=== PATIENT | female | born 1940 | race Caucasian/White ===

== ENCOUNTER 2018-05-14 10:47 | Inpatient (IN) | payer MEDICARE, OTHER ==
[2018-05-14] MEDS ORDERED: Ondansetron 4 MG/2 ML SDV IV ONE (11:00)
[2018-05-14] MEDS ORDERED: Morphine 2 MG/ML Syringe IVPUSH ONE (11:00)
[2018-05-14] MEDS: Sodium Chloride 0.9% 10 ML Syringe FLUSH PRN (11:03)
[2018-05-14] MEDS ORDERED: Morphine 4 MG/ML Syringe IVPUSH ONE (12:37)
--- NOTE | 2018-05-14 13:45 | PCM.HP ---
H&P History of Present Illness - General Date of Service: 05/14/18 Admit Problem/Dx: admitted for pain control had fall at home and CT showede Left sacral Alar fracture and B/L Pubic rami fracture Source of Information: Patient, Old Records History Limitations: Reports: No Limitations - History of Present Illness Initial Comments - Free Text/Narative: Ms Venkatesh Kenyon is a 77-year-old female with medical history significant for hypertension, hyperlipidemia, chronic history of alcohol use, chronic history of tobacco use, with history of Left Hip Fracture s/p Closed reduction with intramedullary nail fixation, intertrochanteric fracture, left, on May 09, 2014, she presented to ER today after she had fall yesterday ( 05/13/18) at her brother's house while she was going from garage to house and fell on stairs of the garage, after coming to ER today () had CT of pelvis without contrast on 05/14/18 and showed left sacral Alar Fracture and B/L pubic rami fracture, ER doctor talk to education counselor orthopedic ( Dr. Olivares) at [facility] and recommend if pain is controlled the pt can go home and continue weight bearing and wanted to see her in a week in clinic. ER attending called me with these Information and she will be admitted for pain control and if the pain is well controlled then will be able to go home. she is admitted as observation for pain control. she also had CXR that showed increasing airspace consolidation in the left Lung is likely pneumonia Onset of Symptoms: Reports: Today, Gradual Quality: Reports: Sharp Severity: Moderate Lower Back Pain Score (Numeric/FACES): 9 Left Upper Thigh Pain Score (Numeric/FACES): 9 - Related Data Allergies/Adverse Reactions: Allergies Allergy/AdvReac Type Severity Reaction Status Date / Time hydrochlorothiazide Allergy Dizziness Verified 05/15/14 15:59 Home Medications: Home Meds Aspirin [Estee Chewable Aspirin] 81 mg PO DAILY 05/15/14 [History] Calcium Carbonate/Vitamin D3 [Calcium 500 + Vit D 400] 1 each PO DAILY 05/15/14 [History] Cholecalciferol (Vitamin D3) [Vitamin D3] 1,000 units PO DAILY 05/15/14 [History ] amLODIPine [Norvasc] 5 mg PO DAILY 05/15/14 [History] atorvaSTATin [Lipitor] 20 mg PO DAILY 05/15/14 [History] Lisinopril 20 mg PO DAILY 05/14/18 [History] Past Medical History HEENT History: Reports: Impaired Vision Other HEENT History: wears glasses Cardiovascular History: Reports: High Cholesterol, Hypertension Respiratory History: Reports: COPD Endocrine/Metabolic History: Reports: Diabetes, Type II Other Endocrine/Metabolic History: told her she didn't have to worry about her Type 2 Diabetes till she was maybe 88 Social & Family History - Tobacco Use Smoking Status *Q: Current Every Day Smoker Years of Tobacco use: 60 Packs/Tins Daily: 0.5 H&P Review of Systems - Review of Systems: Review Of Systems: See Below General: Reports: Other (severe pain on her hip and back). Denies: Fever, Chills, Weakness, Weight Gain HEENT: Denies: Headaches, Sinus Congestion, Sore Throat, Visual Changes Pulmonary: Denies: Shortness of Breath, Wheezing, Cough, Sputum Cardiovascular: Denies: Chest Pain, Dyspnea on Exertion, Edema, Claudication Gastrointestinal: Denies: Abdominal Pain, Diarrhea, Nausea, Vomiting Genitourinary: Denies: Dysuria, Frequency, Burning, Urgency Musculoskeletal: Reports: Other (B/L hip pain and back pain). Denies: Neck Pain Skin: Denies: Cyanosis, Jaundice, Bruising, Pruritis, Rash, Erythema Psychiatric: Denies: Confusion, Anxiety Neurological: Denies: Confusion, Numbness, Tingling, Tremors Exam - Exam Exam: See Below - Vital Signs Vital Signs: Last Vital Signs Temp 37.6 C 05/14/18 13:20 Pulse 91 05/14/18 13:20 Resp 18 05/14/18 13:20 BP 105/93 H 05/14/18 13:20 Pulse Ox 84 L 05/14/18 13:20 Weight: 38.555 kg - Exam Quality Assessment: DVT Prophylaxis. No: Supplemental Oxygen, Urinary Catheter General: Alert, Oriented, Cooperative HEENT: Conjunctiva Clear, EOMI, Hearing Intact, Mucosa Moist & [place] Neck: Supple. No: Lymphadenopathy, Thyromegaly Lungs: Clear to Auscultation, Normal Respiratory Effort. No: Wheezing Cardiovascular: Regular Rate, Regular Rhythm, Systolic Murmur GI/Abdominal Exam: Normal Bowel Sounds, Soft, Non-Tender, No Distention. No: Guarding, Rigid, Rebound (Female) Exam: Deferred Rectal (Female) Exam: Deferred Back Exam: Normal Inspection Extremities: Normal Inspection, No Pedal Edema Skin: Warm, Dry, Intact Neurological: Cranial Nerves Intact, Reflexes Equal Bilateral Neuro Extensive - Mental Status: Alert, Oriented x3, Normal Mood/Affect, Normal Cognition, Memory Intact Psychiatric: Alert, Normal Affect, Normal Mood - Problem List (1) Hip pain, bilateral SNOMED Code(s): 98258496 ICD Code: M25.551 - PAIN IN RIGHT HIP; M25.552 - PAIN IN LEFT HIP Status: Acute Current Visit: Yes (2) Fracture of femur SNOMED Code(s): 29424788 ICD Code: S72.90XA - UNSP FRACTURE OF UNSP FEMUR, INIT ENCNTR FOR CLOSED FRACTURE Status: Acute Current Visit: No Problem List Initiated/Reviewed/Updated: Yes Orders Last 24hrs: Active Orders 24 hr Category Date Time Status Peripheral IV Care [RC] . DIRECTED Care 05/14/18 10:58 Active Sodium Chloride 0.9% [Saline Flush] Med 05/14/18 10:58 Active 10 ml FLUSH ASDIRECTED PRN Peripheral IV Insertion Adult [OM.PC] Routine Oth 05/14/18 10:58 Ordered Medication Orders Sodium Chloride (Saline Flush) 10 ml FLUSH ASDIRECTED PRN PRN Reason: Keep Vein Open Last Admin: 05/14/18 11:03 Dose: 10 ml Assessment/Plan Comment:: This is a 77 y/O F admitted after she had fall at home with CT finding of left sacral alar fracture and B/L pubic rami fracture Impression and Plan: 1. left sacral alar fracture and B/L pubic rami fracture -Pt's images were reviewed by Dr. Olivares ( orthopedic) at [facility] and recommended pain control -will start her on percocet 5/325 mg q6 hrs for pain -continue Telenol 650 mg q8 hrs prn pain -Will continue Morphine 2 mg IV q8 hrs PRN for breakthrough pain -Will consult PT/OT for evaluation and treat -Ortho plan to see her in a week -Will also start her on calcitonin nasal spray as per Ortho recommendation 2. Hypertension: BP acceptable and will continue Amlodipine at 5 mg daily 3. DVT prophylaxis: Continue heparin Code status: Full Code
[2018-05-14] MEDS ORDERED: Bisacodyl 10 MG Supp RECTAL PRN (14:30)
[2018-05-14] MEDS ORDERED: Acetaminophen 325 MG Tab PO PRN (14:30)
[2018-05-14] MEDS: Heparin Sodium 5,000 Units/ML Vial SUBCUT SCH ×3 (15:11→22:10)
[2018-05-14] MEDS: Acetaminophen/oxyCODONE 325-5 MG Tab PO PRN ×3 (15:11→23:15)
--- NOTE | 2018-05-14 19:25 | ER ---
SUBJECTIVE: The patient is a 77-year-old female who has osteoporosis, previous left hip fractures, and had to have a jorge down her femur who comes in today because she fell on some ice and ended up hurting her low back and her pelvis and left hip area. She denies hitting her head. Has no neck pain, chest pain, mid or upper back pain. She actually fell last night, and she was assisted to bed. This a.m., she was even more tender and had a hard time getting up and then was brought into the emergency room. No further falls since last night. No abdominal pain. No nausea or vomiting. No bowel or bladder changes or bleeding. PAST MEDICAL HISTORY: Osteoporosis, osteopenia, and osteoarthritis, hypertension, hyperlipidemia, COPD, chronic tobacco abuse, diabetes. CURRENT MEDICATIONS: 1. Aspirin 81 mg p.o. daily. 2. Calcium 500 plus vitamin D 400 p.o. daily. 3. Amlodipine 5 mg p.o. daily. 4. Atorvastatin 20 mg p.o. daily. 5. Lisinopril 20 mg p.o. daily. ALLERGIES: She is allergic to hydrochlorothiazide, causes dizziness. SOCIAL HISTORY: She has been smoking since a young age for about 60 years. Occasional alcohol. No other substance abuse. REVIEW OF SYSTEMS: No headache, syncope, near syncope, vision changes, head pain. No head trauma. No seizures, no neck pain. No middle or upper back pain but does have low back pain and left hip pain. No abdominal pain. No nausea or vomiting. No bowel or bladder changes or bleeding. Please see HPI. OBJECTIVE: Vitals: Stable. She is afebrile. General: Pleasant, she comes in by ambulance. HEENT: Normocephalic and atraumatic. Neurologic: A and O x3. GCS of 15. Neck: Nontender. Chest: Nontender, moving air well. Cardiovascular: RRR. Abdominal Exam: Soft and benign. Back: She does have some low back tenderness. No signs of trauma. No deformity or crepitus or point tenderness. Her left hip is tender, it is nonspecific however. There is no crepitus or deformity. There is no internal rotation or external rotation. DIAGNOSTIC STUDIES: A CAT scan of her low back and pelvis was performed. She did have a bilateral pubic rami fracture that was nondisplaced and also had fracture of the left ala of the sacrum. EMERGENCY ROOM COURSE: I did discuss the patient with Dr. Olivares, the orthopedist at [place] at [facility]. He was forwarded the CAT scans, he did review them. He said the fractures are non-surgical and that if the patient was able, she could go home, weight bear as able. She will need Miacalcin (calcitonin) and pain medications. She is also to take vitamin C and vitamin D as well as some calcium which she is already on. However if the patient was unable to tolerate the pain, she may have to be admitted for observation. The patient was given morphine and Zofran. Her pain was quite intense, she had nobody to pick her up. She felt she was unable to live by herself at home and get around. She was not able to sit up or move around well and posed great threat of falling again to herself. Therefore we did call the doctor on-call here at [facility], and he agreed to accept her to his service. She will be admitted. ASSESSMENT: 1. Fall. 2. Bilateral pubic rami fracture secondary to fall. 3. Left-sided alar fracture of sacrum, all nondisplaced. 4. Osteoporosis. 5. Intractable pain and inability to take care of herself and go home. PLAN: The patient will be admitted to the hospitalist. [facility] /[id number]
[2018-05-14] MEDS: Morphine 2 MG/ML Syringe IVPUSH PRN (20:41)
[2018-05-15] MEDS: Heparin Sodium 5,000 Units/ML Vial SUBCUT SCH ×4 (05:31→21:37)
[2018-05-15] MEDS: Acetaminophen/oxyCODONE 325-5 MG Tab PO PRN ×3 (05:31→20:06)
[2018-05-15] MEDS ORDERED: Ondansetron 4 MG/2 ML SDV IV PRN (05:41)
[2018-05-15 07:05] LABS: ANION GAP 15.4; CHLORIDE,CL 97 mmol/L (101-111); SODIUM,NA 132 mmol/L (135-145)
[2018-05-15] MEDS: Cholecalciferol (Vitamin D3) 400 Unit Tab PO SCH (09:15)
[2018-05-15] MEDS: Aspirin 81 MG Tab.Chew PO SCH (09:16)
[2018-05-15] MEDS: atorvaSTATin 20 MG Tab PO SCH (09:16)
[2018-05-15] MEDS: Calcium Carbonate/Vitamin D3 1250 MG-200 Unit Tab PO SCH (09:16)
[2018-05-15] MEDS: amLODIPine 5 MG Tab PO SCH (09:16)
[2018-05-15] MEDS: Lisinopril 20 MG Tab PO SCH (09:17)
[2018-05-15] MEDS: Calcitonin (Salmon) Nasal Spray 3.7 ML Bottle NAS SCH (09:25)
[2018-05-15] MEDS: Morphine 2 MG/ML Syringe IVPUSH PRN ×3 (10:13→21:17)
[2018-05-15] MEDS: Sodium Chloride 0.9% 10 ML Syringe FLUSH PRN ×2 (10:14→14:32)
[2018-05-15] MEDS: Ondansetron 4 MG/2 ML SDV IV PRN (14:32)
--- NOTE | 2018-05-15 14:48 | PCM.PN ---
- General Info Date of Service: 05/15/18 Admission Dx/Problem (Free Text): admitted for pain control had fall at home and CT showede Left sacral Alar fracture and B/L Pubic rami fracture Subjective Update: Pelvic pain is much better controlled today No new complaints No cough, no SOB, no CP. - Review of Systems General: Reports: No Symptoms HEENT: Reports: No Symptoms Pulmonary: Reports: No Symptoms Cardiovascular: Reports: No Symptoms Gastrointestinal: Reports: No Symptoms Genitourinary: Reports: No Symptoms Musculoskeletal: Reports: Other (pelvic pain) Neurological: Reports: No Symptoms - Patient Data Vitals - Most Recent: Last Vital Signs Temp 37.4 C 05/15/18 12:00 Pulse 83 05/15/18 12:00 Resp 22 H 05/15/18 12:00 BP 80/47 L 05/15/18 12:00 Pulse Ox 90 L 05/15/18 12:29 Weight - Most Recent: 38.555 kg I&O - Last 24 Hours: Intake & Output 05/14/18 05/15/18 05/15/18 22:59 06:59 14:59 Intake Total 240 Output Total 500 Balance 240 -500 Lab Results Last 24 Hours: Laboratory Results - last 24 hr 05/15/18 05/15/18 Range/Units 06:21 06:21 WBC 18.0 H (5.0-10.0) 10^3/uL RBC 3.82 L (4.2-5.4) 10^6/uL Hgb 11.8 L (12.0-16.0) g/dL Hct 35.3 L (37.0-47.0) % MCV 92.4 (80-100) fL MCH 30.9 (27.0-34.0) pg MCHC 33.4 (33.0-35.0) g/dL Plt Count 176 D (150-450) 10^3/uL Neut % (Auto) 89.9 H (42.2-75.2) % Lymph % (Auto) 3.5 L (20.5-50.1) % [place] % (Auto) 5.9 (2-8) % Eos % (Auto) 0.5 L (1.0-3.0) % Baso % (Auto) 0.2 (0.0-1.0) % Sodium 132 L (135-145) mmol/L Potassium 4.4 (3.6-5.0) mmol/L Chloride 97 L (101-111) mmol/L Carbon Dioxide 24.0 (21.0-31.0) mmol/L Anion Gap 15.4 BUN 32 H (7-18) mg/dL Creatinine 0.9 (0.6-1.3) mg/dL Est Cr Clr Drug Dosing 30.85 mL/min Estimated GFR (MDRD) > 60 Glucose 143 H (74-105) mg/dL Calcium 8.4 (8.4-10.2) mg/dl Med Orders - Current: Current Medications Acetaminophen (Tylenol) 650 mg PO Q4H PRN PRN Reason: Pain (mild 1-3 )/fever Amlodipine Besylate (Norvasc) 5 mg PO DAILY [facility] Last Admin: 05/15/18 09:16 Dose: Not Given Aspirin (Aspirin) 81 mg PO DAILY [facility] Last Admin: 05/15/18 09:16 Dose: 81 mg Atorvastatin Calcium (Lipitor) 20 mg PO DAILY [facility] Last Admin: 05/15/18 09:16 Dose: 20 mg Bisacodyl (Dulcolax) 10 mg RECTAL DAILY PRN PRN Reason: Constipation Calcitonin [place] (Miacalcin Nasal [place]) 0 ml GLORIA DAILY [facility] Last Admin: 05/15/18 09:25 Dose: 1 spr Calcium Carbonate (Calcium Carbonate/Vitamin D 1250 Mg-200 Unit) 1 tab PO DAILY [facility] Last Admin: 05/15/18 09:16 Dose: 1 tab Cholecalciferol (Vitamin D3) 1,000 units PO DAILY [facility] Last Admin: 05/15/18 09:15 Dose: 1,000 units Docusate Sodium (Colace) 100 mg PO DAILY PRN PRN Reason: Constipation Heparin Sodium (Porcine) (Heparin Sodium) 5,000 units SUBCUT Q8H [facility] Last Admin: 05/15/18 14:31 Dose: 5,000 units Lisinopril (Prinivil) 20 mg PO DAILY [facility] Last Admin: 05/15/18 09:17 Dose: Not Given Morphine Sulfate (Morphine) 2 mg IVPUSH Q4H PRN PRN Reason: Pain (severe 7-10) Last Admin: 05/15/18 14:31 Dose: 2 mg Ondansetron HCl (Zofran) 4 mg IV Q6H PRN PRN Reason: Nausea/Vomiting Last Admin: 05/15/18 14:32 Dose: 4 mg Oxycodone/Acetaminophen (Percocet 325-5 Mg) 1 tab PO Q4H PRN PRN Reason: Pain (moderate 4-6) Last Admin: 05/15/18 09:16 Dose: 1 tab Sodium Chloride (Saline Flush) 10 ml FLUSH ASDIRECTED PRN PRN Reason: Keep Vein Open Last Admin: 05/15/18 14:32 Dose: 10 ml Discontinued Medications Morphine Sulfate (Morphine) 2 mg IVPUSH ONETIME ONE Stop: 05/14/18 11:01 Last Admin: 05/14/18 11:07 Dose: 2 mg Morphine Sulfate (Morphine) 4 mg IVPUSH ONETIME ONE Stop: 05/14/18 12:38 Last Admin: 05/14/18 12:44 Dose: 4 mg Morphine Sulfate (Morphine) 1 mg IVPUSH Q4H PRN PRN Reason: Pain Last Admin: 05/15/18 10:13 Dose: 1 mg Ondansetron HCl (Zofran) 4 mg IV ONETIME ONE Stop: 05/14/18 11:01 Last Admin: 05/14/18 11:03 Dose: 4 mg Ondansetron HCl (Zofran) 4 mg IV Q12H PRN PRN Reason: Nausea/Vomiting Last Admin: 05/15/18 06:19 Dose: 4 mg - Exam General: Alert HEENT: Pupils Equal Neck: Supple Lungs: Clear to Auscultation Cardiovascular: Regular Rate, Regular Rhythm GI/Abdominal Exam: Normal Bowel Sounds Back Exam: Other (mild lower back tenderness) Extremities: Normal Inspection, Non-Tender - Problem List Review Problem List Initiated/Reviewed/Updated: Yes - My Orders Last 24 Hours: My Active Orders 05/15/18 11:08 Ondansetron [Zofran] 4 mg IV Q6H PRN 05/15/18 12:13 RT Incentive Spirometry [RC] Q2HWA 05/15/18 13:38 Admission Status [Patient Status] [ADT] Routine 05/15/18 14:00 Morphine 2 mg IVPUSH Q4H PRN 05/16/18 05:11 BASIC METABOLIC PANEL,BMP [CHEM] AM CBC WITH AUTO DIFF [HEME] AM - Plan Plan:: This is a 77 y/O F admitted after she had fall at home with CT finding of left sacral alar fracture and B/L pubic rami fracture Impression and Plan: 1. left sacral alar fracture and B/L pubic rami fracture -Pt's images were reviewed by Dr. Olivares (orthopedic) at [facility] and recommended conservative management with pain control and PT/OT. OK to WBAT -Pain mgt -continue PT/OT for evaluation and treat -Ortho plan to see her in a week -continue calcitonin nasal spray as per Ortho recommendation 2. Leucocytosis: elevated WBC noted. Likely reactionary 2/2 trauma. Will trend CBC daily. No abx for now 3. Hypertension: BP acceptable and will continue Amlodipine at 5 mg daily 4. DVT prophylaxis: Continue heparin Code status: Full Code
[2018-05-15] MEDS: Docusate Sodium 100 MG Cap PO PRN (20:06)
[2018-05-16] MEDS: Acetaminophen/oxyCODONE 325-5 MG Tab PO PRN ×5 (01:11→22:34)
[2018-05-16] MEDS: Heparin Sodium 5,000 Units/ML Vial SUBCUT SCH ×3 (06:08→22:17)
[2018-05-16 07:07] LABS: ANION GAP 14.4; CHLORIDE,CL 96 mmol/L (101-111); SODIUM,NA 134 mmol/L (135-145)
[2018-05-16] MEDS: Aspirin 81 MG Tab.Chew PO SCH (09:41)
[2018-05-16] MEDS: Cholecalciferol (Vitamin D3) 400 Unit Tab PO SCH (09:43)
[2018-05-16] MEDS: atorvaSTATin 20 MG Tab PO SCH (09:43)
[2018-05-16] MEDS: Calcium Carbonate/Vitamin D3 1250 MG-200 Unit Tab PO SCH (09:43)
[2018-05-16] MEDS: amLODIPine 5 MG Tab PO SCH (09:44)
[2018-05-16] MEDS: Calcitonin (Salmon) Nasal Spray 3.7 ML Bottle NAS SCH (09:44)
[2018-05-16] MEDS: Lisinopril 20 MG Tab PO SCH (09:44)
[2018-05-16] MEDS: Ondansetron 4 MG/2 ML SDV IV PRN (10:45)
--- NOTE | 2018-05-16 11:09 | PCM.PN ---
- General Info Date of Service: 05/16/18 Admission Dx/Problem (Free Text): admitted for pain control had fall at home and CT showede Left sacral Alar fracture and B/L Pubic rami fracture Subjective Update: Complains of cough productive of yellowish sputum Low grade fever overnight Still has significant hip pain - Review of Systems General: Reports: Fever HEENT: Reports: No Symptoms Pulmonary: Reports: Cough, Sputum Cardiovascular: Reports: No Symptoms Gastrointestinal: Reports: No Symptoms Genitourinary: Reports: No Symptoms Musculoskeletal: Reports: Other (hip pain) - Patient Data Vitals - Most Recent: Last Vital Signs Temp 36.0 C 05/16/18 08:11 Pulse 93 05/16/18 08:11 Resp 20 05/16/18 08:11 BP 107/61 05/16/18 09:44 Pulse Ox 88 L 05/16/18 08:11 Weight - Most Recent: 38.555 kg I&O - Last 24 Hours: Intake & Output 05/15/18 05/16/18 05/16/18 22:59 06:59 14:59 Output Total 335 200 Balance -335 -200 Lab Results Last 24 Hours: Laboratory Results - last 24 hr 05/16/18 05/16/18 Range/Units 06:20 06:20 WBC 15.4 H (5.0-10.0) 10^3/uL RBC 3.57 L (4.2-5.4) 10^6/uL Hgb 10.9 L (12.0-16.0) g/dL Hct 33.2 L (37.0-47.0) % MCV 93.0 (80-100) fL MCH 30.5 (27.0-34.0) pg MCHC 32.8 L (33.0-35.0) g/dL Plt Count 169 (150-450) 10^3/uL Neut % (Auto) 84.8 H (42.2-75.2) % Lymph % (Auto) 5.3 L (20.5-50.1) % [place] % (Auto) 8.6 H (2-8) % Eos % (Auto) 1.0 (1.0-3.0) % Baso % (Auto) 0.3 (0.0-1.0) % Sodium 134 L (135-145) mmol/L Potassium 4.4 (3.6-5.0) mmol/L Chloride 96 L (101-111) mmol/L Carbon Dioxide 28.0 (21.0-31.0) mmol/L Anion Gap 14.4 BUN 35 H (7-18) mg/dL Creatinine 0.7 (0.6-1.3) mg/dL Est Cr Clr Drug Dosing 39.66 mL/min Estimated GFR (MDRD) > 60 Glucose 108 H (74-105) mg/dL Calcium 9.0 (8.4-10.2) mg/dl Med Orders - Current: Current Medications Acetaminophen (Tylenol) 650 mg PO Q4H PRN PRN Reason: Pain (mild 1-3 )/fever Amlodipine Besylate (Norvasc) 5 mg PO DAILY [facility] Last Admin: 05/16/18 09:44 Dose: 5 mg Aspirin (Aspirin) 81 mg PO DAILY [facility] Last Admin: 05/16/18 09:41 Dose: 81 mg Atorvastatin Calcium (Lipitor) 20 mg PO DAILY [facility] Last Admin: 05/16/18 09:43 Dose: 20 mg Azithromycin (Zithromax) 500 mg PO DAILY [facility] Bisacodyl (Dulcolax) 10 mg RECTAL DAILY PRN PRN Reason: Constipation Calcitonin [place] (Miacalcin Nasal [place]) 0 ml GLORIA DAILY [facility] Last Admin: 05/16/18 09:44 Dose: 1 spr Calcium Carbonate (Calcium Carbonate/Vitamin D 1250 Mg-200 Unit) 1 tab PO DAILY [facility] Last Admin: 05/16/18 09:43 Dose: 1 tab Cholecalciferol (Vitamin D3) 1,000 units PO DAILY [facility] Last Admin: 05/16/18 09:43 Dose: 1,000 units Docusate Sodium (Colace) 100 mg PO DAILY PRN PRN Reason: Constipation Last Admin: 05/15/18 20:06 Dose: 100 mg Heparin Sodium (Porcine) (Heparin Sodium) 5,000 units SUBCUT Q8H [facility] Last Admin: 05/16/18 06:08 Dose: 5,000 units Ceftriaxone Sodium 1 gm/ (Sodium Chloride) 50 mls @ 50 mls/hr IV Q24H [facility] Lisinopril (Prinivil) 20 mg PO DAILY [facility] Last Admin: 05/16/18 09:44 Dose: 20 mg Morphine Sulfate (Morphine) 2 mg IVPUSH Q4H PRN PRN Reason: Pain (severe 7-10) Last Admin: 05/15/18 21:17 Dose: 2 mg Ondansetron HCl (Zofran) 4 mg IV Q6H PRN PRN Reason: Nausea/Vomiting Last Admin: 05/15/18 14:32 Dose: 4 mg Oxycodone/Acetaminophen (Percocet 325-5 Mg) 1 tab PO Q4H PRN PRN Reason: Pain (moderate 4-6) Last Admin: 05/16/18 09:43 Dose: 1 tab Sodium Chloride (Saline Flush) 10 ml FLUSH ASDIRECTED PRN PRN Reason: Keep Vein Open Last Admin: 05/15/18 14:32 Dose: 10 ml Discontinued Medications Morphine Sulfate (Morphine) 2 mg IVPUSH ONETIME ONE Stop: 05/14/18 11:01 Last Admin: 05/14/18 11:07 Dose: 2 mg Morphine Sulfate (Morphine) 4 mg IVPUSH ONETIME ONE Stop: 05/14/18 12:38 Last Admin: 05/14/18 12:44 Dose: 4 mg Morphine Sulfate (Morphine) 1 mg IVPUSH Q4H PRN PRN Reason: Pain Last Admin: 05/15/18 10:13 Dose: 1 mg Ondansetron HCl (Zofran) 4 mg IV ONETIME ONE Stop: 05/14/18 11:01 Last Admin: 05/14/18 11:03 Dose: 4 mg Ondansetron HCl (Zofran) 4 mg IV Q12H PRN PRN Reason: Nausea/Vomiting Last Admin: 05/15/18 06:19 Dose: 4 mg - Exam General: Alert, Oriented HEENT: Pupils Equal Neck: Supple Lungs: Crackles Cardiovascular: Regular Rate, Regular Rhythm GI/Abdominal Exam: Normal Bowel Sounds, Soft, Non-Tender - Problem List Review Problem List Initiated/Reviewed/Updated: Yes - My Orders Last 24 Hours: My Active Orders 05/15/18 11:08 Ondansetron [Zofran] 4 mg IV Q6H PRN 05/15/18 12:13 RT Incentive Spirometry [RC] Q2HWA 05/15/18 13:38 Admission Status [Patient Status] [ADT] Routine 05/15/18 14:00 Morphine 2 mg IVPUSH Q4H PRN 05/16/18 10:14 Chest 2V [CR] Routine CULTURE SPUTUM + SMEAR [RM] Routine 05/16/18 10:30 Azithromycin [Zithromax] 500 mg PO DAILY 05/16/18 12:00 cefTRIAXone [Rocephin] 1 gm Sodium Chloride 0.9% [Normal Saline] 50 ml IV Q24H - Plan Plan:: This is a 77 y/O F admitted after she had fall at home with CT finding of left sacral alar fracture and B/L pubic rami fracture Impression and Plan: 1. left sacral alar fracture and B/L pubic rami fracture -Pt's images were reviewed by Dr. Olivares (orthopedic) at [facility] and recommended conservative management with pain control and PT/OT. OK to WBAT -Pain mgt -continue PT/OT for evaluation and treat -Ortho plan to see her in a week -continue calcitonin nasal spray as per Ortho recommendation 2. Cough, fever, Leucocytosis Possible community acquire pneumonia check CXR, sputum cx, flu screen IV ceftriaxone and oral azithromycin 3. Hypertension: BP acceptable and will continue Amlodipine at 5 mg daily 4. DVT prophylaxis: Continue heparin Code status: Full Code
[2018-05-16] MEDS: Azithromycin 250 MG Tab PO SCH (12:13)
[2018-05-16] MEDS: cefTRIAXone 1 GM in Sodium Chloride 0.9% 50 ML IV SCH (13:59)
--- NOTE | 2018-05-16 15:26 | CR ---
CLINICAL HISTORY: 77-year-old female with cough. INTERPRETATION: Abnormal. 1. *Infrahilar, lower lobe, masslike infiltrate right lung with irregular margins. Neoplasm? Pneumonia? 2. Generalized air trapping. Kyphoscoliosis osteopenic spine. No other lung mass or focal lobar consolidation. 3. Normal cardiac silhouette without cephalization of flow, alveolar edema or dependent pleural fluid accumulation. Recommend CT scan of the chest.
[2018-05-16] MEDS: Sodium Chloride 0.9% 10 ML Syringe FLUSH PRN (22:18)
[2018-05-17] MEDS: Acetaminophen/oxyCODONE 325-5 MG Tab PO PRN ×3 (04:21→20:55)
[2018-05-17] MEDS: Heparin Sodium 5,000 Units/ML Vial SUBCUT SCH ×3 (06:20→22:04)
[2018-05-17] MEDS ORDERED: Iopamidol 612 MG/ML 75 ML Bottle IVPUSH ONE (07:33)
[2018-05-17] MEDS: Cholecalciferol (Vitamin D3) 400 Unit Tab PO SCH (08:21)
[2018-05-17] MEDS: Aspirin 81 MG Tab.Chew PO SCH (08:22)
[2018-05-17] MEDS: Calcium Carbonate/Vitamin D3 1250 MG-200 Unit Tab PO SCH (08:22)
[2018-05-17] MEDS: atorvaSTATin 20 MG Tab PO SCH (08:22)
[2018-05-17] MEDS: Azithromycin 250 MG Tab PO SCH (08:24)
[2018-05-17] MEDS: Calcitonin (Salmon) Nasal Spray 3.7 ML Bottle NAS SCH (08:25)
[2018-05-17] MEDS ORDERED: Dextrose 5%-0.9% NaCl 1,000 ML IV SCH (09:45)
--- NOTE | 2018-05-17 09:53 | PCM.PN ---
- General Info Date of Service: 05/17/18 Admission Dx/Problem (Free Text): admitted for pain control had fall at home and CT showede Left sacral Alar fracture and B/L Pubic rami fracture Subjective Update: Still Complains of cough productive of yellowish sputum. Poor appetite. Still has significant hip pain CXR yesterday showed RLL mass Of note, patient has BMI of 15.5, weight loss, chronic cough, smoker - Review of Systems General: Reports: No Symptoms. Denies: Fever HEENT: Reports: No Symptoms Pulmonary: Reports: Cough, Sputum Cardiovascular: Reports: No Symptoms Gastrointestinal: Reports: No Symptoms Genitourinary: Reports: No Symptoms Musculoskeletal: Reports: Other (hip pain) - Patient Data Vitals - Most Recent: Last Vital Signs Temp 36.7 C 05/17/18 08:05 Pulse 78 05/17/18 08:05 Resp 20 05/17/18 08:05 BP 81/48 L 05/17/18 08:05 Pulse Ox 92 L 05/17/18 08:05 Weight - Most Recent: 38.555 kg I&O - Last 24 Hours: Intake & Output 05/16/18 05/17/18 05/17/18 22:59 06:59 14:59 Intake Total 320 175 Output Total 450 100 Balance -130 75 Dejon Results Last 24 Hours: Microbiology 05/16/18 11:20 Gram Stain - Final Sputum - Expectorated 05/16/18 11:20 Influenza Type A Antigen Screen - Final Nasal Aspirate, Unspecified NEGATIVE INFLUENZA A VIRUS AG Influenza Type B Antigen Screen - Final NEGATIVE INFLUENZA B VIRUS AG Med Orders - Current: Current Medications Acetaminophen (Tylenol) 650 mg PO Q4H PRN PRN Reason: Pain (mild 1-3 )/fever Aspirin (Aspirin) 81 mg PO DAILY [facility] Last Admin: 05/17/18 08:22 Dose: 81 mg Atorvastatin Calcium (Lipitor) 20 mg PO DAILY [facility] Last Admin: 05/17/18 08:22 Dose: 20 mg Azithromycin (Zithromax) 500 mg PO DAILY [facility] Last Admin: 05/17/18 08:24 Dose: 500 mg Bisacodyl (Dulcolax) 10 mg RECTAL DAILY PRN PRN Reason: Constipation Calcitonin [place] (Miacalcin Nasal [place]) 0 ml GLORIA DAILY [facility] Last Admin: 05/17/18 08:25 Dose: 1 spr Calcium Carbonate (Calcium Carbonate/Vitamin D 1250 Mg-200 Unit) 1 tab PO DAILY [facility] Last Admin: 05/17/18 08:22 Dose: 1 tab Cholecalciferol (Vitamin D3) 1,000 units PO DAILY [facility] Last Admin: 05/17/18 08:21 Dose: 1,000 units Docusate Sodium (Colace) 100 mg PO DAILY PRN PRN Reason: Constipation Last Admin: 05/15/18 20:06 Dose: 100 mg Heparin Sodium (Porcine) (Heparin Sodium) 5,000 units SUBCUT Q8H [facility] Last Admin: 05/17/18 06:20 Dose: 5,000 units Ceftriaxone Sodium 1 gm/ (Sodium Chloride) 50 mls @ 50 mls/hr IV Q24H [facility] Last Admin: 05/16/18 13:59 Dose: 50 mls/hr Dextrose/Sodium Chloride (Dextrose 5%-Normal Saline) 1,000 mls @ 100 mls/hr IV ASDIRECTED [facility] Morphine Sulfate (Morphine) 2 mg IVPUSH Q4H PRN PRN Reason: Pain (severe 7-10) Last Admin: 05/15/18 21:17 Dose: 2 mg Ondansetron HCl (Zofran) 4 mg IV Q6H PRN PRN Reason: Nausea/Vomiting Last Admin: 05/16/18 10:45 Dose: 4 mg Oxycodone/Acetaminophen (Percocet 325-5 Mg) 1 tab PO Q4H PRN PRN Reason: Pain (moderate 4-6) Last Admin: 05/17/18 08:22 Dose: 1 tab Sodium Chloride (Saline Flush) 10 ml FLUSH ASDIRECTED PRN PRN Reason: Keep Vein Open Last Admin: 05/16/18 22:18 Dose: 10 ml Discontinued Medications Amlodipine Besylate (Norvasc) 5 mg PO DAILY [facility] Last Admin: 05/16/18 09:44 Dose: 5 mg Iopamidol (Isovue-300 (61%)) 75 ml IVPUSH ONETIME ONE Stop: 05/17/18 07:34 Lisinopril (Prinivil) 20 mg PO DAILY [facility] Last Admin: 05/16/18 09:44 Dose: 20 mg Morphine Sulfate (Morphine) 2 mg IVPUSH ONETIME ONE Stop: 05/14/18 11:01 Last Admin: 05/14/18 11:07 Dose: 2 mg Morphine Sulfate (Morphine) 4 mg IVPUSH ONETIME ONE Stop: 05/14/18 12:38 Last Admin: 05/14/18 12:44 Dose: 4 mg Morphine Sulfate (Morphine) 1 mg IVPUSH Q4H PRN PRN Reason: Pain Last Admin: 05/15/18 10:13 Dose: 1 mg Ondansetron HCl (Zofran) 4 mg IV ONETIME ONE Stop: 05/14/18 11:01 Last Admin: 05/14/18 11:03 Dose: 4 mg Ondansetron HCl (Zofran) 4 mg IV Q12H PRN PRN Reason: Nausea/Vomiting Last Admin: 05/15/18 06:19 Dose: 4 mg - Exam General: Alert, Oriented Neck: Supple Lungs: Crackles (RLL crackles) Cardiovascular: Regular Rate, Regular Rhythm GI/Abdominal Exam: Normal Bowel Sounds, Soft, Non-Tender Extremities: Other (hip tenderness b/l) - Problem List Review Problem List Initiated/Reviewed/Updated: Yes - My Orders Last 24 Hours: My Active Orders 05/16/18 10:30 Azithromycin [Zithromax] 500 mg PO DAILY 05/16/18 11:20 CULTURE SPUTUM + SMEAR [RM] Routine 05/16/18 12:00 cefTRIAXone [Rocephin] 1 gm Sodium Chloride 0.9% [Normal Saline] 50 ml IV Q24H 05/17/18 08:00 Chest w Cont [CT] Routine 05/17/18 09:07 DC Melgar Catheter [Urinary Catheter Removal] [RC] Per Unit Routine 05/17/18 09:09 Dietary Supplements [RC] TIDAC Consult to Dietary [Consult to Seismic Survey Assistant] [CONS] Routine 05/17/18 09:45 Dextrose 5%-0.9% NaCl [Dextrose 5%-Normal Saline] 1,000 ml IV ASDIRECTED - Plan Plan:: This is a 77 y/O F admitted after she had fall at home with CT finding of left sacral alar fracture and B/L pubic rami fracture. She is underweight, has cough with productive sputum and leucocytosis. Also has poor appetite. Impression and Plan: 1. left sacral alar fracture and B/L pubic rami fracture -Pt's images were reviewed by Dr. Olivares (orthopedic) at [facility] and recommended conservative management with pain control and PT/OT. OK to WBAT -Pain mgt -continue PT/OT for evaluation and treat -Ortho plan to see her in a week -continue calcitonin nasal spray as per Ortho recommendation 2. Cough, fever, Leucocytosis CXR shows RLL mass. Possible post obstructive pneumonia Check CT chest sputum cx - multiple claudette, flu screen - negative continue IV ceftriaxone and oral azithromycin Start IV fluid 3. Hypertension: BP acceptable and will continue Amlodipine at 5 mg daily 4. DVT prophylaxis: Continue heparin Code status: Full Code
[2018-05-17] MEDS: Sodium Chloride 0.9% 10 ML Syringe FLUSH PRN (10:30)
[2018-05-17] MEDS: Ondansetron 4 MG/2 ML SDV IV PRN (12:12)
[2018-05-17] MEDS: cefTRIAXone 1 GM in Sodium Chloride 0.9% 50 ML IV SCH (12:59)
--- NOTE | 2018-05-17 15:08 | CT ---
CLINICAL HISTORY: 77-year-old 85 pound female smoker with cough and abnormal chest x-ray. SCAN TECHNIQUE: Volume acquisition of data from the chest (bony thorax, lungs and mediastinum) obtained during the intravenous administration 75 cc nonionic Isovue at 3 cc/s via injector while the patient was lying supine on the Siemens multislice scanner [place], [place]. All data archived in the PACS system for storage, reformatting axial/sagittal/coronal planes and study (lung/mediastinal windows). INTERPRETATION: Abnormal. 1. *Dense consolidation occupying most of the posterior segment RLL with some ipsilateral atelectasis, underlying cystic necrosis and dependent small right pleural effusion. Patchy infiltrate posterior segment contralateral LLL with cystic necrosis. No endobronchial lesion or foreign bodies and no intraluminal filling defects (thrombus) pulmonary arteries. 2. Multiple small nodular parenchymal lesions in the immediate area of "infiltrate/atelectasis posterior segment RLL" and another differential consideration would include tuberculosis. Clinical? 3. No other parenchymal lung mass lesion or significant hilar/mediastinal lymphadenopathy. 4. Normal cardiac silhouette without cephalization of vascular flow, alveolar edema or dependent pleural fluid accumulation. 5. Generalized air trapping. Osteoporosis/kyphoscoliosis dorsal spine. No pathologic skeletal lesion, fracture or dislocation. 6. Liver, stomach, spleen and atrophic pancreas unremarkable. CONCLUSION: Probable chronic aspiration pneumonia involving both lower lobes (R>L). Doubt malignancy. Clinical?
[2018-05-18] MEDS: Morphine 2 MG/ML Syringe IVPUSH PRN (05:26)
[2018-05-18] MEDS: Acetaminophen/oxyCODONE 325-5 MG Tab PO PRN ×3 (05:27→14:34)
[2018-05-18] MEDS: Heparin Sodium 5,000 Units/ML Vial SUBCUT SCH ×3 (05:39→22:08)
[2018-05-18] MEDS: Aspirin 81 MG Tab.Chew PO SCH (09:43)
[2018-05-18] MEDS: Cholecalciferol (Vitamin D3) 400 Unit Tab PO SCH (09:44)
[2018-05-18] MEDS: atorvaSTATin 20 MG Tab PO SCH (09:45)
[2018-05-18] MEDS: Calcitonin (Salmon) Nasal Spray 3.7 ML Bottle NAS SCH (09:46)
[2018-05-18] MEDS: Calcium Carbonate/Vitamin D3 1250 MG-200 Unit Tab PO SCH (09:46)
[2018-05-18] MEDS: Azithromycin 250 MG Tab PO SCH (09:48)
[2018-05-18] MEDS: Docusate Sodium 100 MG Cap PO PRN (09:51)
--- NOTE | 2018-05-18 10:33 | PCM.PN ---
- General Info Date of Service: 05/18/18 Admission Dx/Problem (Free Text): admitted for pain control had fall at home and CT showed Left sacral Alar fracture and B/L Pubic rami fracture Subjective Update: Seen and examined today. Still has pain especially when she coughs. CXR yesterday showed RLL mass. She is a chronic smoker. Reports weight loss. Functional Status: Reports: Pain Controlled - Review of Systems General: Reports: Appetite HEENT: Reports: No Symptoms Pulmonary: Reports: No Symptoms, Shortness of Breath, Pleuritic Chest Pain, Cough, Sputum, Wheezing Cardiovascular: Reports: No Symptoms Gastrointestinal: Reports: No Symptoms Genitourinary: Reports: No Symptoms Musculoskeletal: Reports: No Symptoms Skin: Reports: No Symptoms Neurological: Reports: No Symptoms Psychiatric: Reports: No Symptoms - Patient Data Vitals - Most Recent: Last Vital Signs Temp 99.8 F 05/18/18 08:00 Pulse 89 05/18/18 08:00 Resp 20 05/18/18 08:00 BP 92/52 L 05/18/18 08:00 Pulse Ox 92 L 05/18/18 08:00 Weight - Most Recent: 83 lb 4.8 oz I&O - Last 24 Hours: Intake & Output 05/17/18 05/18/18 05/18/18 22:59 06:59 14:59 Intake Total 1000 200 100 Output Total 700 200 Balance 300 0 100 Dejon Results Last 24 Hours: Microbiology 05/16/18 11:20 Gram Stain - Final Sputum - Expectorated Sputum Culture - Final Med Orders - Current: Current Medications Acetaminophen (Tylenol) 650 mg PO Q4H PRN PRN Reason: Pain (mild 1-3 )/fever Aspirin (Aspirin) 81 mg PO DAILY [facility] Last Admin: 05/18/18 09:43 Dose: 81 mg Atorvastatin Calcium (Lipitor) 20 mg PO DAILY [facility] Last Admin: 05/18/18 09:45 Dose: 20 mg Azithromycin (Zithromax) 500 mg PO DAILY [facility] Last Admin: 05/18/18 09:48 Dose: 500 mg Bisacodyl (Dulcolax) 10 mg RECTAL DAILY PRN PRN Reason: Constipation Calcitonin [place] (Miacalcin Nasal [place]) 0 ml GLORIA DAILY [facility] Last Admin: 05/18/18 09:46 Dose: 1 spr Calcium Carbonate (Calcium Carbonate/Vitamin D 1250 Mg-200 Unit) 1 tab PO DAILY [facility] Last Admin: 05/18/18 09:46 Dose: 1 tab Cholecalciferol (Vitamin D3) 1,000 units PO DAILY [facility] Last Admin: 05/18/18 09:44 Dose: 1,000 units Docusate Sodium (Colace) 100 mg PO DAILY PRN PRN Reason: Constipation Last Admin: 05/18/18 09:51 Dose: 100 mg Heparin Sodium (Porcine) (Heparin Sodium) 5,000 units SUBCUT Q8H [facility] Last Admin: 05/18/18 05:39 Dose: 5,000 units Ceftriaxone Sodium 1 gm/ (Sodium Chloride) 50 mls @ 50 mls/hr IV Q24H [facility] Last Admin: 05/17/18 12:59 Dose: 50 mls/hr Morphine Sulfate (Morphine) 2 mg IVPUSH Q4H PRN PRN Reason: Pain (severe 7-10) Last Admin: 05/18/18 05:26 Dose: 2 mg Ondansetron HCl (Zofran) 4 mg IV Q6H PRN PRN Reason: Nausea/Vomiting Last Admin: 05/17/18 12:12 Dose: 4 mg Oxycodone/Acetaminophen (Percocet 325-5 Mg) 1 tab PO Q4H PRN PRN Reason: Pain (moderate 4-6) Last Admin: 05/18/18 09:48 Dose: 1 tab Sodium Chloride (Saline Flush) 10 ml FLUSH ASDIRECTED PRN PRN Reason: Keep Vein Open Last Admin: 05/17/18 10:30 Dose: 10 ml Discontinued Medications Amlodipine Besylate (Norvasc) 5 mg PO DAILY [facility] Last Admin: 05/16/18 09:44 Dose: 5 mg Dextrose/Sodium Chloride (Dextrose 5%-Normal Saline) 1,000 mls @ 100 mls/hr IV ASDIRECTED [facility] Last Infusion: 05/17/18 22:02 Dose: Infused Iopamidol (Isovue-300 (61%)) 75 ml IVPUSH ONETIME ONE Stop: 05/17/18 07:34 Last Admin: 05/17/18 10:10 Dose: 75 ml Lisinopril (Prinivil) 20 mg PO DAILY [facility] Last Admin: 05/16/18 09:44 Dose: 20 mg Morphine Sulfate (Morphine) 2 mg IVPUSH ONETIME ONE Stop: 05/14/18 11:01 Last Admin: 05/14/18 11:07 Dose: 2 mg Morphine Sulfate (Morphine) 4 mg IVPUSH ONETIME ONE Stop: 05/14/18 12:38 Last Admin: 05/14/18 12:44 Dose: 4 mg Morphine Sulfate (Morphine) 1 mg IVPUSH Q4H PRN PRN Reason: Pain Last Admin: 05/15/18 10:13 Dose: 1 mg Ondansetron HCl (Zofran) 4 mg IV ONETIME ONE Stop: 05/14/18 11:01 Last Admin: 05/14/18 11:03 Dose: 4 mg Ondansetron HCl (Zofran) 4 mg IV Q12H PRN PRN Reason: Nausea/Vomiting Last Admin: 05/15/18 06:19 Dose: 4 mg - Exam Quality Assessment: Supplemental Oxygen General: Alert, Oriented HEENT: Pupils Equal, Pupils Reactive, EOMI, Mucous Membr. Moist/[place] Neck: Supple Lungs: Normal Respiratory Effort, Rales, Wheezing Cardiovascular: Regular Rate, Regular Rhythm GI/Abdominal Exam: Normal Bowel Sounds, Soft, Non-Tender, No Organomegaly, No Distention, No Abnormal Bruit, No Mass, Pelvis Stable (Female) Exam: Normal External Exam, Normal Speculum Exam, Normal Bimanual Exam Back Exam: Normal Inspection, Full Range of Motion Extremities: Normal Inspection, Normal Range of Motion, Non-Tender, No Pedal Edema, Normal Capillary Refill Skin: Warm, Dry, Intact Wound/Incisions: Healing Well Neurological: No New Focal Deficit Psy/Mental Status: Alert, Normal Affect, Normal Mood - Problem List & Annotations (1) Pneumonia SNOMED Code(s): 428989705 Code(s): J18.9 - PNEUMONIA, UNSPECIFIED ORGANISM Status: Acute Current Visit: Yes - Problem List Review Problem List Initiated/Reviewed/Updated: Yes - Plan Plan:: This is a 77 y/O F admitted after she had fall at home with CT finding of left sacral alar fracture and B/L pubic rami fracture. She is underweight, has cough with productive sputum and leucocytosis. Also has poor appetite. Impression and Plan: 1. left sacral alar fracture and B/L pubic rami fracture -Pt's images were reviewed by Dr. Olivares (orthopedic) at [facility] and recommended conservative management with pain control and PT/OT. OK to WBAT -Pain mgt -continue PT/OT for evaluation and treat -Ortho plan to see her in a week -continue calcitonin nasal spray as per Ortho recommendation 2. Cough, fever, Leucocytosis CXR shows RLL mass. Possible post obstructive pneumonia sputum cx - multiple claudette, flu screen - negative continue IV ceftriaxone and oral azithromycin Duo-nebs prn 3. Hypertension: BP acceptable and will continue Amlodipine at 5 mg daily 4. DVT prophylaxis: Continue heparin Code status: Full Code
[2018-05-18] MEDS ORDERED: Albuterol/Ipratropium 3.0-0.5 MG/3 ML Neb Soln NEB PRN (10:41)
[2018-05-18] MEDS: Sodium Chloride 0.9% 10 ML Syringe FLUSH PRN ×2 (11:35→22:11)
[2018-05-18] MEDS: Ondansetron 4 MG/2 ML SDV IV PRN ×2 (11:35→18:05)
[2018-05-18] MEDS: cefTRIAXone 1 GM in Sodium Chloride 0.9% 50 ML IV SCH (13:10)
[2018-05-18] MEDS ORDERED: LORazepam 2 MG/ML Syringe IVPUSH PRN (14:53)
[2018-05-18] MEDS: Megestrol Susp 40 MG/ML 10 ML UD Cup PO SCH ×2 (16:53→22:03)
[2018-05-18] MEDS: Nystatin Susp 100,000 Unit/ML 5 ML UD Cup PO SCH (23:42)
[2018-05-19] MEDS: Acetaminophen/oxyCODONE 325-5 MG Tab PO PRN ×3 (02:13→21:13)
[2018-05-19] MEDS: Heparin Sodium 5,000 Units/ML Vial SUBCUT SCH ×3 (06:04→21:32)
[2018-05-19] MEDS: Azithromycin 250 MG Tab PO SCH (09:15)
[2018-05-19] MEDS: Cholecalciferol (Vitamin D3) 400 Unit Tab PO SCH (09:16)
[2018-05-19] MEDS: Aspirin 81 MG Tab.Chew PO SCH (09:17)
[2018-05-19] MEDS: Megestrol Susp 40 MG/ML 10 ML UD Cup PO SCH ×2 (09:17→21:13)
[2018-05-19] MEDS: Calcium Carbonate/Vitamin D3 1250 MG-200 Unit Tab PO SCH (09:17)
[2018-05-19] MEDS: Pantoprazole 40 MG Vial IVPUSH SCH (09:17)
[2018-05-19] MEDS: Nystatin Susp 100,000 Unit/ML 5 ML UD Cup PO SCH ×4 (09:17→21:13)
[2018-05-19] MEDS: Sodium Chloride 0.9% 10 ML Syringe FLUSH PRN ×2 (09:18→13:20)
[2018-05-19] MEDS: Calcitonin (Salmon) Nasal Spray 3.7 ML Bottle NAS SCH (09:25)
[2018-05-19] MEDS: atorvaSTATin 20 MG Tab PO SCH (09:45)
[2018-05-19] MEDS ORDERED: Levofloxacin 500 MG Tab PO SCH (09:45)
[2018-05-19] MEDS ORDERED: Meclizine 12.5 MG Tab PO PRN (10:41)
[2018-05-19] MEDS: Ondansetron 4 MG/2 ML SDV IV PRN (13:20)
--- NOTE | 2018-05-19 13:26 | MR ---
Clinical history: 77-year-old female smoker with cough, hypoxia and dizziness currently hospitalized with "pneumonia". Scan technique: Unenhanced sagittal T1 and multisequence axial (T1/T2/FLAIR/fusion weighted imaging) MR images obtained while patient was lying supine on the [place] 1.[employer] magnet [place], [place]. All data archived in the PACS system for storage, reformatting axial/sagittal/coronal planes and study. Interpretation: Abnormal. *Multiple bright lesions of varying size and configuration scattered throughout the periventricular white matter of both cerebral hemispheres that have the characteristic appearance of multi-infarct ischemia. No associated edema or mass effect on the surrounding sulci or underlying ventricular system. No sign of acute intracerebral/intraventricular/subarachnoid bleed. No supratentorial or posterior fossa mass lesion. Mirror-image normal ventricular system. Cerebellum and brainstem unremarkable. No abnormal extracerebral/intracranial epidural or subdural hematoma. Symmetric clear pneumatization of the paranasal and mastoid sinuses i.e. no inflammation. CONCLUSION: Multi-infarct ischemic disease consistent with entities like age, hypertension, diabetes and "smoker"! No intracranial mass or bleed. No hydrocephalus.
[2018-05-19] MEDS ORDERED: Ondansetron 4 MG Tab.DIS PO PRN (16:44)
[2018-05-20] MEDS: Heparin Sodium 5,000 Units/ML Vial SUBCUT SCH ×3 (06:15→21:49)
[2018-05-20] MEDS: Docusate Sodium 100 MG Cap PO PRN (06:25)
[2018-05-20] MEDS: Acetaminophen/oxyCODONE 325-5 MG Tab PO PRN ×4 (06:25→21:47)
[2018-05-20] MEDS: Levofloxacin 250 MG Tab PO SCH (08:43)
[2018-05-20] MEDS: Aspirin 81 MG Tab.Chew PO SCH (08:43)
[2018-05-20] MEDS: Cholecalciferol (Vitamin D3) 400 Unit Tab PO SCH (08:44)
[2018-05-20] MEDS: atorvaSTATin 20 MG Tab PO SCH (08:45)
[2018-05-20] MEDS: Calcium Carbonate/Vitamin D3 1250 MG-200 Unit Tab PO SCH (08:45)
[2018-05-20] MEDS: Pantoprazole 40 MG Vial IVPUSH SCH (08:47)
[2018-05-20] MEDS: Calcitonin (Salmon) Nasal Spray 3.7 ML Bottle NAS SCH (08:48)
[2018-05-20] MEDS: Sodium Chloride 0.9% 10 ML Syringe FLUSH PRN ×2 (08:49→21:54)
[2018-05-20] MEDS: Megestrol Susp 40 MG/ML 10 ML UD Cup PO SCH ×2 (08:50→21:47)
[2018-05-20] MEDS: Nystatin Susp 100,000 Unit/ML 5 ML UD Cup PO SCH ×4 (08:56→21:48)
--- NOTE | 2018-05-20 11:25 | PCM.PN ---
- General Info Date of Service: 05/20/18 Admission Dx/Problem (Free Text): admitted for pain control had fall at home and CT showed Left sacral Alar fracture and B/L Pubic rami fracture Subjective Update: Seen and examined today. No acute overnight event. Pain is improving. She is tolerating PT/OT. Functional Status: Reports: Pain Controlled - Review of Systems General: Reports: No Symptoms HEENT: Reports: No Symptoms Pulmonary: Reports: No Symptoms Cardiovascular: Reports: No Symptoms Gastrointestinal: Reports: No Symptoms Genitourinary: Reports: No Symptoms Musculoskeletal: Reports: No Symptoms Skin: Reports: No Symptoms Neurological: Reports: No Symptoms Psychiatric: Reports: No Symptoms - Patient Data Vitals - Most Recent: Last Vital Signs Temp 98.8 F 05/20/18 07:51 Pulse 85 05/20/18 07:51 Resp 16 05/20/18 07:51 BP 100/55 L 05/20/18 07:51 Pulse Ox 93 L 05/20/18 07:51 Weight - Most Recent: 80 lb 0.6 oz I&O - Last 24 Hours: Intake & Output 05/19/18 05/20/18 05/20/18 22:59 06:59 14:59 Intake Total 500 Output Total 800 300 Balance -300 -300 Lab Results Last 24 Hours: Laboratory Results - last 24 hr 05/20/18 Range/Units 06:06 WBC 9.8 (5.0-10.0) 10^3/uL RBC 3.29 L (4.2-5.4) 10^6/uL Hgb 10.0 L (12.0-16.0) g/dL Hct 30.8 L (37.0-47.0) % MCV 93.6 (80-100) fL MCH 30.4 (27.0-34.0) pg MCHC 32.5 L (33.0-35.0) g/dL Plt Count 263 (150-450) 10^3/uL Neut % (Auto) 64.9 (42.2-75.2) % Lymph % (Auto) 19.0 L (20.5-50.1) % [place] % (Auto) 12.9 H (2-8) % Eos % (Auto) 2.8 (1.0-3.0) % Baso % (Auto) 0.4 (0.0-1.0) % Med Orders - Current: Current Medications Acetaminophen (Tylenol) 650 mg PO Q4H PRN PRN Reason: Pain (mild 1-3 )/fever Albuterol/Ipratropium (Duoneb 3.0-0.5 Mg/3 Ml) 3 ml NEB Q4HRRT PRN PRN Reason: wheezing Last Admin: 05/18/18 13:46 Dose: 3 ml Aspirin (Aspirin) 81 mg PO DAILY [facility] Last Admin: 05/20/18 08:43 Dose: 81 mg Atorvastatin Calcium (Lipitor) 20 mg PO DAILY [facility] Last Admin: 05/20/18 08:45 Dose: 20 mg Bisacodyl (Dulcolax) 10 mg RECTAL DAILY PRN PRN Reason: Constipation Last Admin: 05/20/18 10:03 Dose: 10 mg Calcitonin [place] (Miacalcin Nasal [place]) 0 ml GLORIA DAILY [facility] Last Admin: 05/20/18 08:48 Dose: 1 spr Calcium Carbonate (Calcium Carbonate/Vitamin D 1250 Mg-200 Unit) 1 tab PO DAILY [facility] Last Admin: 05/20/18 08:45 Dose: 1 tab Cholecalciferol (Vitamin D3) 1,000 units PO DAILY [facility] Last Admin: 05/20/18 08:44 Dose: 1,000 units Docusate Sodium (Colace) 100 mg PO DAILY PRN PRN Reason: Constipation Last Admin: 05/20/18 06:25 Dose: 100 mg Heparin Sodium (Porcine) (Heparin Sodium) 5,000 units SUBCUT Q8H [facility] Last Admin: 05/20/18 06:15 Dose: 5,000 units Levofloxacin (Levaquin) 250 mg PO DAILY [facility] Last Admin: 05/20/18 08:43 Dose: 250 mg Lorazepam (Ativan) 0 mg IVPUSH ASDIRECTED PRN; Protocol PRN Reason: Agitation Last Admin: 05/18/18 15:53 Dose: 1 mg Meclizine HCl (Antivert) 12.5 mg PO BID PRN PRN Reason: virtigo Last Admin: 05/19/18 14:12 Dose: 12.5 mg Megestrol Acetate (Megace 40 Mg/Ml Susp) 400 mg PO BID [facility] Last Admin: 05/20/18 08:50 Dose: 400 mg Morphine Sulfate (Morphine) 2 mg IVPUSH Q4H PRN PRN Reason: Pain (severe 7-10) Last Admin: 05/18/18 05:26 Dose: 2 mg Nystatin (Mycostatin) 5 ml PO QID [facility] Last Admin: 05/20/18 08:56 Dose: 5 ml Ondansetron HCl (Zofran Odt) 4 mg PO Q6H PRN PRN Reason: Nausea/Vomiting Oxycodone/Acetaminophen (Percocet 325-5 Mg) 1 tab PO Q4H PRN PRN Reason: Pain (moderate 4-6) Last Admin: 05/20/18 06:25 Dose: 1 tab Pantoprazole Sodium (Protonix Iv) 40 mg IVPUSH DAILY [facility] Last Admin: 05/20/18 08:47 Dose: 40 mg Sodium Chloride (Saline Flush) 10 ml FLUSH ASDIRECTED PRN PRN Reason: Keep Vein Open Last Admin: 05/20/18 08:49 Dose: 10 ml Discontinued Medications Amlodipine Besylate (Norvasc) 5 mg PO DAILY [facility] Last Admin: 05/16/18 09:44 Dose: 5 mg Azithromycin (Zithromax) 500 mg PO DAILY [facility] Last Admin: 05/19/18 09:15 Dose: 500 mg Ceftriaxone Sodium 1 gm/ (Sodium Chloride) 50 mls @ 50 mls/hr IV Q24H [facility] Last Admin: 05/18/18 13:10 Dose: 50 mls/hr Dextrose/Sodium Chloride (Dextrose 5%-Normal Saline) 1,000 mls @ 100 mls/hr IV ASDIRECTED [facility] Last Infusion: 05/17/18 22:02 Dose: Infused Iopamidol (Isovue-300 (61%)) 75 ml IVPUSH ONETIME ONE Stop: 05/17/18 07:34 Last Admin: 05/17/18 10:10 Dose: 75 ml Levofloxacin (Levaquin) 500 mg PO DAILY [facility] Last Admin: 05/19/18 11:06 Dose: 500 mg Lisinopril (Prinivil) 20 mg PO DAILY [facility] Last Admin: 05/16/18 09:44 Dose: 20 mg Morphine Sulfate (Morphine) 2 mg IVPUSH ONETIME ONE Stop: 05/14/18 11:01 Last Admin: 05/14/18 11:07 Dose: 2 mg Morphine Sulfate (Morphine) 4 mg IVPUSH ONETIME ONE Stop: 05/14/18 12:38 Last Admin: 05/14/18 12:44 Dose: 4 mg Morphine Sulfate (Morphine) 1 mg IVPUSH Q4H PRN PRN Reason: Pain Last Admin: 05/15/18 10:13 Dose: 1 mg Ondansetron HCl (Zofran) 4 mg IV ONETIME ONE Stop: 05/14/18 11:01 Last Admin: 05/14/18 11:03 Dose: 4 mg Ondansetron HCl (Zofran) 4 mg IV Q12H PRN PRN Reason: Nausea/Vomiting Last Admin: 05/15/18 06:19 Dose: 4 mg Ondansetron HCl (Zofran) 4 mg IV Q6H PRN PRN Reason: Nausea/Vomiting Last Admin: 05/19/18 13:20 Dose: 4 mg - Exam Quality Assessment: Supplemental Oxygen, DVT Prophylaxis General: Alert, Oriented HEENT: Pupils Equal, Pupils Reactive, EOMI, Mucous Membr. Moist/[place] Neck: Supple Lungs: Clear to Auscultation, Normal Respiratory Effort Cardiovascular: Regular Rate, Regular Rhythm GI/Abdominal Exam: Normal Bowel Sounds, Soft, Non-Tender, No Organomegaly, No Distention, No Abnormal Bruit, No Mass, Pelvis Stable (Female) Exam: Normal External Exam, Normal Speculum Exam, Normal Bimanual Exam Back Exam: Normal Inspection, Full Range of Motion Extremities: Normal Inspection, Normal Range of Motion, Non-Tender, No Pedal Edema, Normal Capillary Refill Skin: Warm, Dry, Intact Wound/Incisions: Healing Well Neurological: No New Focal Deficit Psy/Mental Status: Alert, Normal Affect, Normal Mood - Problem List & Annotations (1) Pneumonia SNOMED Code(s): 727414511 Code(s): J18.9 - PNEUMONIA, UNSPECIFIED ORGANISM Status: Acute Current Visit: Yes - Problem List Review Problem List Initiated/Reviewed/Updated: Yes - My Orders Last 24 Hours: My Active Orders 05/19/18 10:41 Meclizine [Antivert] 12.5 mg PO BID PRN 05/19/18 16:44 Ondansetron [Zofran ODT] 4 mg PO Q6H PRN 05/20/18 09:00 levoFLOXacin [Levaquin] 250 mg PO DAILY 05/21/18 05:00 CBC WITH AUTO DIFF [HEME] DAILY 05/22/18 05:00 CBC WITH AUTO DIFF [HEME] DAILY 05/23/18 05:00 CBC WITH AUTO DIFF [HEME] DAILY - Plan Plan:: This is a 77 y/O F admitted after she had fall at home with CT finding of left sacral alar fracture and B/L pubic rami fracture. She is underweight, has cough with productive sputum and leucocytosis. Also has poor appetite. Impression and Plan: 1. left sacral alar fracture and B/L pubic rami fracture -Pt's images were reviewed by Dr. Olivares (orthopedic) at [facility] and recommended conservative management with pain control and PT/OT. OK to WBAT -Pain mgt -continue PT/OT for evaluation and treat -Ortho plan to see her in a week -continue calcitonin nasal spray as per Ortho recommendation 2. Cough, fever, Leucocytosis CXR shows RLL mass. Possible post obstructive pneumonia sputum cx - multiple claudette, flu screen - negative PO Levaquin Duo-nebs prn 3. Hypertension BP within acceptable limits Continue Amlodipine at 5 mg daily 4. DVT prophylaxis Continue heparin Code status She wants to remain Full Code
[2018-05-21] MEDS: Heparin Sodium 5,000 Units/ML Vial SUBCUT SCH ×3 (05:46→22:38)
[2018-05-21] MEDS: Acetaminophen/oxyCODONE 325-5 MG Tab PO PRN ×4 (05:49→21:13)
[2018-05-21] MEDS: Cholecalciferol (Vitamin D3) 400 Unit Tab PO SCH (08:41)
[2018-05-21] MEDS: atorvaSTATin 20 MG Tab PO SCH (08:42)
[2018-05-21] MEDS: Levofloxacin 250 MG Tab PO SCH (08:42)
[2018-05-21] MEDS: Aspirin 81 MG Tab.Chew PO SCH (08:43)
[2018-05-21] MEDS: Calcium Carbonate/Vitamin D3 1250 MG-200 Unit Tab PO SCH (08:43)
[2018-05-21] MEDS: Pantoprazole 40 MG Vial IVPUSH SCH (08:44)
[2018-05-21] MEDS: Megestrol Susp 40 MG/ML 10 ML UD Cup PO SCH ×2 (08:45→20:27)
[2018-05-21] MEDS: Nystatin Susp 100,000 Unit/ML 5 ML UD Cup PO SCH ×4 (08:47→20:29)
[2018-05-21] MEDS: Sodium Chloride 0.9% 10 ML Syringe FLUSH PRN (08:47)
[2018-05-21] MEDS: Calcitonin (Salmon) Nasal Spray 3.7 ML Bottle NAS SCH (08:51)
--- NOTE | 2018-05-21 10:39 | PCM.PN ---
- General Info Date of Service: 05/21/18 Admission Dx/Problem (Free Text): admitted for pain control had fall at home and CT showed Left sacral Alar fracture and B/L Pubic rami fracture Subjective Update: Seen and examined today. No acute overnight event. Pain has improved. She is tolerating PT/OT. Functional Status: Reports: Pain Controlled - Review of Systems General: Reports: No Symptoms HEENT: Reports: No Symptoms Pulmonary: Reports: No Symptoms Cardiovascular: Reports: No Symptoms Gastrointestinal: Reports: No Symptoms Genitourinary: Reports: No Symptoms Musculoskeletal: Reports: No Symptoms Skin: Reports: No Symptoms Neurological: Reports: No Symptoms Psychiatric: Reports: No Symptoms - Patient Data Vitals - Most Recent: Last Vital Signs Temp 98.6 F 05/21/18 07:30 Pulse 96 05/21/18 07:30 Resp 20 05/21/18 07:30 BP 99/56 L 05/21/18 07:30 Pulse Ox 94 L 05/21/18 07:30 Weight - Most Recent: 81 lb I&O - Last 24 Hours: Intake & Output 05/20/18 05/21/18 05/21/18 22:59 06:59 14:59 Intake Total 400 75 Output Total 300 150 Balance 100 -75 Lab Results Last 24 Hours: Laboratory Results - last 24 hr 05/21/18 Range/Units 06:30 WBC 8.9 (5.0-10.0) 10^3/uL RBC 3.19 L (4.2-5.4) 10^6/uL Hgb 9.6 L (12.0-16.0) g/dL Hct 29.7 L (37.0-47.0) % MCV 93.1 (80-100) fL MCH 30.1 (27.0-34.0) pg MCHC 32.3 L (33.0-35.0) g/dL Plt Count 301 (150-450) 10^3/uL Neut % (Auto) 64.1 (42.2-75.2) % Lymph % (Auto) 19.8 L (20.5-50.1) % [place] % (Auto) 12.0 H (2-8) % Eos % (Auto) 3.5 H (1.0-3.0) % Baso % (Auto) 0.6 (0.0-1.0) % Med Orders - Current: Current Medications Acetaminophen (Tylenol) 650 mg PO Q4H PRN PRN Reason: Pain (mild 1-3 )/fever Albuterol/Ipratropium (Duoneb 3.0-0.5 Mg/3 Ml) 3 ml NEB Q4HRRT PRN PRN Reason: wheezing Last Admin: 05/18/18 13:46 Dose: 3 ml Aspirin (Aspirin) 81 mg PO DAILY [facility] Last Admin: 05/21/18 08:43 Dose: 81 mg Atorvastatin Calcium (Lipitor) 20 mg PO DAILY [facility] Last Admin: 05/21/18 08:42 Dose: 20 mg Bisacodyl (Dulcolax) 10 mg RECTAL DAILY PRN PRN Reason: Constipation Last Admin: 05/20/18 10:03 Dose: 10 mg Calcitonin [place] (Miacalcin Nasal [place]) 0 ml GLORIA DAILY [facility] Last Admin: 05/21/18 08:51 Dose: 1 spr Calcium Carbonate (Calcium Carbonate/Vitamin D 1250 Mg-200 Unit) 1 tab PO DAILY [facility] Last Admin: 05/21/18 08:43 Dose: 1 tab Cholecalciferol (Vitamin D3) 1,000 units PO DAILY [facility] Last Admin: 05/21/18 08:41 Dose: 1,000 units Docusate Sodium (Colace) 100 mg PO DAILY PRN PRN Reason: Constipation Last Admin: 05/20/18 06:25 Dose: 100 mg Heparin Sodium (Porcine) (Heparin Sodium) 5,000 units SUBCUT Q8H [facility] Last Admin: 05/21/18 05:46 Dose: 5,000 units Levofloxacin (Levaquin) 250 mg PO DAILY [facility] Last Admin: 05/21/18 08:42 Dose: 250 mg Lorazepam (Ativan) 0 mg IVPUSH ASDIRECTED PRN; Protocol PRN Reason: Agitation Last Admin: 05/18/18 15:53 Dose: 1 mg Meclizine HCl (Antivert) 12.5 mg PO BID PRN PRN Reason: virtigo Last Admin: 05/19/18 14:12 Dose: 12.5 mg Megestrol Acetate (Megace 40 Mg/Ml Susp) 400 mg PO BID [facility] Last Admin: 05/21/18 08:45 Dose: 400 mg Nystatin (Mycostatin) 5 ml PO QID [facility] Last Admin: 05/21/18 08:47 Dose: 5 ml Ondansetron HCl (Zofran Odt) 4 mg PO Q6H PRN PRN Reason: Nausea/Vomiting Oxycodone/Acetaminophen (Percocet 325-5 Mg) 1 tab PO Q4H PRN PRN Reason: Pain (moderate 4-6) Last Admin: 05/21/18 05:49 Dose: 1 tab Senna/Docusate Sodium (Senna Plus) 1 tab PO BID [facility] Last Admin: 05/21/18 08:43 Dose: 1 tab Sodium Chloride (Saline Flush) 10 ml FLUSH ASDIRECTED PRN PRN Reason: Keep Vein Open Last Admin: 05/21/18 08:47 Dose: 10 ml Discontinued Medications Amlodipine Besylate (Norvasc) 5 mg PO DAILY [facility] Last Admin: 05/16/18 09:44 Dose: 5 mg Azithromycin (Zithromax) 500 mg PO DAILY [facility] Last Admin: 05/19/18 09:15 Dose: 500 mg Ceftriaxone Sodium 1 gm/ (Sodium Chloride) 50 mls @ 50 mls/hr IV Q24H [facility] Last Admin: 05/18/18 13:10 Dose: 50 mls/hr Dextrose/Sodium Chloride (Dextrose 5%-Normal Saline) 1,000 mls @ 100 mls/hr IV ASDIRECTED [facility] Last Infusion: 05/17/18 22:02 Dose: Infused Iopamidol (Isovue-300 (61%)) 75 ml IVPUSH ONETIME ONE Stop: 05/17/18 07:34 Last Admin: 05/17/18 10:10 Dose: 75 ml Levofloxacin (Levaquin) 500 mg PO DAILY [facility] Last Admin: 05/19/18 11:06 Dose: 500 mg Lisinopril (Prinivil) 20 mg PO DAILY [facility] Last Admin: 05/16/18 09:44 Dose: 20 mg Morphine Sulfate (Morphine) 2 mg IVPUSH ONETIME ONE Stop: 05/14/18 11:01 Last Admin: 05/14/18 11:07 Dose: 2 mg Morphine Sulfate (Morphine) 4 mg IVPUSH ONETIME ONE Stop: 05/14/18 12:38 Last Admin: 05/14/18 12:44 Dose: 4 mg Morphine Sulfate (Morphine) 1 mg IVPUSH Q4H PRN PRN Reason: Pain Last Admin: 05/15/18 10:13 Dose: 1 mg Morphine Sulfate (Morphine) 2 mg IVPUSH Q4H PRN PRN Reason: Pain (severe 7-10) Last Admin: 05/18/18 05:26 Dose: 2 mg Ondansetron HCl (Zofran) 4 mg IV ONETIME ONE Stop: 05/14/18 11:01 Last Admin: 05/14/18 11:03 Dose: 4 mg Ondansetron HCl (Zofran) 4 mg IV Q12H PRN PRN Reason: Nausea/Vomiting Last Admin: 05/15/18 06:19 Dose: 4 mg Ondansetron HCl (Zofran) 4 mg IV Q6H PRN PRN Reason: Nausea/Vomiting Last Admin: 05/19/18 13:20 Dose: 4 mg Pantoprazole Sodium (Protonix Iv) 40 mg IVPUSH DAILY [facility] Last Admin: 05/21/18 08:44 Dose: 40 mg - Exam Quality Assessment: Supplemental Oxygen, DVT Prophylaxis General: Alert, Oriented HEENT: Pupils Equal, Pupils Reactive, EOMI, Mucous Membr. Moist/[place] Neck: Supple Lungs: Clear to Auscultation, Normal Respiratory Effort Cardiovascular: Regular Rate, Regular Rhythm GI/Abdominal Exam: Normal Bowel Sounds, Soft, Non-Tender, No Organomegaly, No Distention, No Abnormal Bruit, No Mass, Pelvis Stable (Female) Exam: Normal External Exam, Normal Speculum Exam, Normal Bimanual Exam Back Exam: Normal Inspection, Full Range of Motion Extremities: Normal Inspection, Normal Range of Motion, Non-Tender, No Pedal Edema, Normal Capillary Refill Skin: Warm, Dry, Intact Wound/Incisions: Healing Well Neurological: No New Focal Deficit Psy/Mental Status: Alert, Normal Affect, Normal Mood - Problem List & Annotations (1) Pneumonia SNOMED Code(s): 841309930 Code(s): J18.9 - PNEUMONIA, UNSPECIFIED ORGANISM Status: Acute Current Visit: Yes - Problem List Review Problem List Initiated/Reviewed/Updated: Yes - My Orders Last 24 Hours: My Active Orders 05/20/18 21:00 Docusate Sodium/Sennosides [Senna Plus] 1 tab PO BID 05/21/18 10:36 Peripheral IV Discontinue [OM.PC] Routine 05/22/18 05:00 CBC WITH AUTO DIFF [HEME] DAILY 05/23/18 05:00 CBC WITH AUTO DIFF [HEME] DAILY 05/23/18 05:11 BASIC METABOLIC PANEL,BMP [CHEM] AM - Plan Plan:: This is a 77 y/O F admitted after she had fall at home with CT finding of left sacral alar fracture and B/L pubic rami fracture. She is underweight, has cough with productive sputum and leucocytosis. Also has poor appetite. Impression and Plan: 1. left sacral alar fracture and B/L pubic rami fracture -Pt's images were reviewed by Dr. Olivares (orthopedic) at [facility] [place] and recommended conservative management with pain control and PT/OT. OK to WBAT -continue PT/OT -Ortho plan to see her in a week -continue calcitonin nasal spray as per Ortho recommendation 2. Cough, fever, Leucocytosis CXR shows RLL mass. Possible post obstructive pneumonia sputum cx - multiple claudette, flu screen - negative PO Levaquin Duo-nebs prn 3. Hypertension BP within acceptable limits Continue Amlodipine at 5 mg daily 4. DVT prophylaxis Continue heparin Code status She wants to remain Full Code
[2018-05-22] MEDS: Heparin Sodium 5,000 Units/ML Vial SUBCUT SCH (06:00)
[2018-05-22] MEDS ORDERED: Pantoprazole 40 MG Tab.CR PO SCH (06:00)
[2018-05-22 07:54] VITALS: BP 107/72
[2018-05-22] MEDS: Cholecalciferol (Vitamin D3) 400 Unit Tab PO SCH (08:17)
[2018-05-22] MEDS: Megestrol Susp 40 MG/ML 10 ML UD Cup PO SCH (08:18)
[2018-05-22] MEDS: Nystatin Susp 100,000 Unit/ML 5 ML UD Cup PO SCH (08:18)
[2018-05-22] MEDS: Calcium Carbonate/Vitamin D3 1250 MG-200 Unit Tab PO SCH (08:18)
[2018-05-22] MEDS: Aspirin 81 MG Tab.Chew PO SCH (08:19)
[2018-05-22] MEDS: atorvaSTATin 20 MG Tab PO SCH (08:19)
[2018-05-22] MEDS: Levofloxacin 250 MG Tab PO SCH (08:19)
[2018-05-22] MEDS: Calcitonin (Salmon) Nasal Spray 3.7 ML Bottle NAS SCH (08:20)
--- NOTE | 2018-05-22 10:48 | PCM.DCSUM1 ---
Discharge Summary - Hospital Course Free Text/Narrative:: Ms Venkatesh Kenyon is a 77-year-old female with medical history significant for hypertension, hyperlipidemia, chronic history of alcohol use, chronic history of tobacco use, with history of Left Hip Fracture s/p Closed reduction with intramedullary nail fixation, intertrochanteric fracture, left, on May 09, 2014, she presented to ER following a fall . CT of pelvis without contrast on and showed left sacral Alar Fracture and B/L pubic rami fracture, ER doctor talk to enterprise application analyst orthopedic ( Dr. Olivares) at [facility] and recommend conservative management. she also had CXR that showed increasing airspace consolidation in the left Lung concerning for pneumonia. She received abx with improvement. She will be discharge to swing bed today to continue PT/OT. Diagnosis: Stroke: No - Discharge Data Discharge Date: 05/22/18 Discharge Disposition: DC/Tfer W/I Hosp To Swing 61 Condition: Stable - Discharge Diagnosis/Problem(s) (1) Pneumonia SNOMED Code(s): 318765038 ICD Code: J18.9 - PNEUMONIA, UNSPECIFIED ORGANISM Status: Acute Current Visit: Yes - Patient Summary/Data Consults: Consultations 05/14/18 14:38 PT Evaluation and Treatment [CONS] Routine 05/14/18 14:39 OT Evaluation and Treatment [CONS] Routine 05/17/18 09:09 Consult to Dietary [Consult to Insurance Claim Auditor] [CONS] Routine - Patient Instructions Diet: Heart Healthy Diet Fluid Restriction: 1500 mL Activity: As Tolerated Driving: Do Not Drive Showering/Bathing: May Shower Notify Provider of: Fever, Increased Pain, Swelling and Redness, Nausea and/or Vomiting - Discharge Plan *PRESCRIPTION DRUG MONITORING PROGRAM REVIEWED*: Not Applicable *COPY OF PRESCRIPTION DRUG MONITORING REPORT IN PATIENT HUE: Not Applicable Home Medications: Home Meds Aspirin [Estee Chewable Aspirin] 81 mg PO DAILY 05/15/14 [History] Calcium Carbonate/Vitamin D3 [Calcium 500 + Vit D 400] 1 each PO DAILY 05/15/14 [History] Cholecalciferol (Vitamin D3) [Vitamin D3] 1,000 units PO DAILY 05/15/14 [History ] amLODIPine [Norvasc] 5 mg PO DAILY 05/15/14 [History] atorvaSTATin [Lipitor] 20 mg PO DAILY 05/15/14 [History] Lisinopril 20 mg PO DAILY 05/14/18 [History] Oxygen Therapy Mode: Nasal Cannula - Discharge Summary/Plan Comment DC Time >30 min.: Yes - Patient Data Vitals - Most Recent: Last Vital Signs Temp 98.5 F 05/22/18 07:52 Pulse 102 H 05/22/18 07:52 Resp 20 05/22/18 07:52 BP 107/72 05/22/18 07:52 Pulse Ox 94 L 05/22/18 07:52 Weight - Most Recent: 81 lb 12.8 oz I&O - Last 24 hours: Intake & Output 05/21/18 05/22/18 05/22/18 22:59 06:59 14:59 Intake Total 400 50 Output Total 400 400 Balance 0 -400 50 Lab Results - Last 24 hrs: Laboratory Results - last 24 hr 05/22/18 Range/Units 06:20 WBC 10.1 H (5.0-10.0) 10^3/uL RBC 3.38 L (4.2-5.4) 10^6/uL Hgb 10.3 L (12.0-16.0) g/dL Hct 31.2 L (37.0-47.0) % MCV 92.3 (80-100) fL MCH 30.5 (27.0-34.0) pg MCHC 33.0 (33.0-35.0) g/dL Plt Count 372 (150-450) 10^3/uL Neut % (Auto) 68.0 (42.2-75.2) % Lymph % (Auto) 18.2 L (20.5-50.1) % [place] % (Auto) 10.6 H (2-8) % Eos % (Auto) 2.8 (1.0-3.0) % Baso % (Auto) 0.4 (0.0-1.0) % Med Orders - Current: Current Medications Acetaminophen (Tylenol) 650 mg PO Q4H PRN PRN Reason: Pain (mild 1-3 )/fever Albuterol/Ipratropium (Duoneb 3.0-0.5 Mg/3 Ml) 3 ml NEB Q4HRRT PRN PRN Reason: wheezing Last Admin: 05/18/18 13:46 Dose: 3 ml Aspirin (Aspirin) 81 mg PO DAILY [facility] Last Admin: 05/22/18 08:19 Dose: 81 mg Atorvastatin Calcium (Lipitor) 20 mg PO DAILY [facility] Last Admin: 05/22/18 08:19 Dose: 20 mg Bisacodyl (Dulcolax) 10 mg RECTAL DAILY PRN PRN Reason: Constipation Last Admin: 05/20/18 10:03 Dose: 10 mg Calcitonin [place] (Miacalcin Nasal [place]) 0 ml GLORIA DAILY [facility] Last Admin: 05/22/18 08:20 Dose: 1 spr Calcium Carbonate (Calcium Carbonate/Vitamin D 1250 Mg-200 Unit) 1 tab PO DAILY [facility] Last Admin: 05/22/18 08:18 Dose: 1 tab Cholecalciferol (Vitamin D3) 1,000 units PO DAILY [facility] Last Admin: 05/22/18 08:17 Dose: 1,000 units Docusate Sodium (Colace) 100 mg PO DAILY PRN PRN Reason: Constipation Last Admin: 05/20/18 06:25 Dose: 100 mg Heparin Sodium (Porcine) (Heparin Sodium) 5,000 units SUBCUT Q8H [facility] Last Admin: 05/22/18 06:00 Dose: 5,000 units Levofloxacin (Levaquin) 250 mg PO DAILY [facility] Last Admin: 05/22/18 08:19 Dose: 250 mg Meclizine HCl (Antivert) 12.5 mg PO BID PRN PRN Reason: virtigo Last Admin: 05/19/18 14:12 Dose: 12.5 mg Megestrol Acetate (Megace 40 Mg/Ml Susp) 400 mg PO BID [facility] Last Admin: 05/22/18 08:18 Dose: 400 mg Nystatin (Mycostatin) 5 ml PO QID [facility] Last Admin: 05/22/18 08:18 Dose: 5 ml Ondansetron HCl (Zofran Odt) 4 mg PO Q6H PRN PRN Reason: Nausea/Vomiting Oxycodone/Acetaminophen (Percocet 325-5 Mg) 1 tab PO Q4H PRN PRN Reason: Pain (moderate 4-6) Last Admin: 05/21/18 21:13 Dose: 1 tab Pantoprazole Sodium (Protonix) 40 mg PO ACBREAKFAST [facility] Last Admin: 05/22/18 06:01 Dose: 40 mg Senna/Docusate Sodium (Senna Plus) 1 tab PO BID [facility] Last Admin: 05/22/18 08:19 Dose: 1 tab Discontinued Medications Amlodipine Besylate (Norvasc) 5 mg PO DAILY [facility] Last Admin: 05/16/18 09:44 Dose: 5 mg Azithromycin (Zithromax) 500 mg PO DAILY [facility] Last Admin: 05/19/18 09:15 Dose: 500 mg Ceftriaxone Sodium 1 gm/ (Sodium Chloride) 50 mls @ 50 mls/hr IV Q24H [facility] Last Admin: 05/18/18 13:10 Dose: 50 mls/hr Dextrose/Sodium Chloride (Dextrose 5%-Normal Saline) 1,000 mls @ 100 mls/hr IV ASDIRECTED [facility] Last Infusion: 05/17/18 22:02 Dose: Infused Iopamidol (Isovue-300 (61%)) 75 ml IVPUSH ONETIME ONE Stop: 05/17/18 07:34 Last Admin: 05/17/18 10:10 Dose: 75 ml Levofloxacin (Levaquin) 500 mg PO DAILY [facility] Last Admin: 05/19/18 11:06 Dose: 500 mg Lisinopril (Prinivil) 20 mg PO DAILY [facility] Last Admin: 05/16/18 09:44 Dose: 20 mg Lorazepam (Ativan) 0 mg IVPUSH ASDIRECTED PRN; Protocol PRN Reason: Agitation Last Admin: 05/18/18 15:53 Dose: 1 mg Morphine Sulfate (Morphine) 2 mg IVPUSH ONETIME ONE Stop: 05/14/18 11:01 Last Admin: 05/14/18 11:07 Dose: 2 mg Morphine Sulfate (Morphine) 4 mg IVPUSH ONETIME ONE Stop: 05/14/18 12:38 Last Admin: 05/14/18 12:44 Dose: 4 mg Morphine Sulfate (Morphine) 1 mg IVPUSH Q4H PRN PRN Reason: Pain Last Admin: 05/15/18 10:13 Dose: 1 mg Morphine Sulfate (Morphine) 2 mg IVPUSH Q4H PRN PRN Reason: Pain (severe 7-10) Last Admin: 05/18/18 05:26 Dose: 2 mg Ondansetron HCl (Zofran) 4 mg IV ONETIME ONE Stop: 05/14/18 11:01 Last Admin: 05/14/18 11:03 Dose: 4 mg Ondansetron HCl (Zofran) 4 mg IV Q12H PRN PRN Reason: Nausea/Vomiting Last Admin: 05/15/18 06:19 Dose: 4 mg Ondansetron HCl (Zofran) 4 mg IV Q6H PRN PRN Reason: Nausea/Vomiting Last Admin: 05/19/18 13:20 Dose: 4 mg Pantoprazole Sodium (Protonix Iv) 40 mg IVPUSH DAILY [facility] Last Admin: 05/21/18 08:44 Dose: 40 mg Sodium Chloride (Saline Flush) 10 ml FLUSH ASDIRECTED PRN PRN Reason: Keep Vein Open Last Admin: 05/21/18 08:47 Dose: 10 ml
--- NOTE | 2018-05-23 12:07 | PCM.PN ---
- General Info Date of Service: 05/19/18 Admission Dx/Problem (Free Text): admitted for pain control had fall at home and CT showed Left sacral Alar fracture and B/L Pubic rami fracture Subjective Update: Seen and examined today. No acute overnight event. Pain has improved. She is tolerating PT/OT. Functional Status: Reports: Pain Controlled - Review of Systems General: Reports: No Symptoms HEENT: Reports: No Symptoms Pulmonary: Reports: No Symptoms Cardiovascular: Reports: No Symptoms Gastrointestinal: Reports: No Symptoms Genitourinary: Reports: No Symptoms Musculoskeletal: Reports: No Symptoms Skin: Reports: No Symptoms Neurological: Reports: No Symptoms Psychiatric: Reports: No Symptoms - Patient Data Vitals - Most Recent: Last Vital Signs Temp 98.5 F 05/22/18 07:52 Pulse 102 H 05/22/18 07:52 Resp 20 05/22/18 07:52 BP 107/72 05/22/18 07:52 Pulse Ox 94 L 05/22/18 07:52 Weight - Most Recent: 81 lb 12.8 oz Med Orders - Current: Current Medications Discontinued Medications Acetaminophen (Tylenol) 650 mg PO Q4H PRN PRN Reason: Pain (mild 1-3 )/fever Albuterol/Ipratropium (Duoneb 3.0-0.5 Mg/3 Ml) 3 ml NEB Q4HRRT PRN PRN Reason: wheezing Last Admin: 05/18/18 13:46 Dose: 3 ml Amlodipine Besylate (Norvasc) 5 mg PO DAILY [facility] Last Admin: 05/16/18 09:44 Dose: 5 mg Aspirin (Aspirin) 81 mg PO DAILY [facility] Last Admin: 05/22/18 08:19 Dose: 81 mg Atorvastatin Calcium (Lipitor) 20 mg PO DAILY [facility] Last Admin: 05/22/18 08:19 Dose: 20 mg Azithromycin (Zithromax) 500 mg PO DAILY [facility] Last Admin: 05/19/18 09:15 Dose: 500 mg Bisacodyl (Dulcolax) 10 mg RECTAL DAILY PRN PRN Reason: Constipation Last Admin: 05/20/18 10:03 Dose: 10 mg Calcitonin [place] (Miacalcin Nasal [place]) 0 ml GLORIA DAILY [facility] Last Admin: 05/22/18 08:20 Dose: 1 spr Calcium Carbonate (Calcium Carbonate/Vitamin D 1250 Mg-200 Unit) 1 tab PO DAILY [facility] Last Admin: 05/22/18 08:18 Dose: 1 tab Cholecalciferol (Vitamin D3) 1,000 units PO DAILY [facility] Last Admin: 05/22/18 08:17 Dose: 1,000 units Docusate Sodium (Colace) 100 mg PO DAILY PRN PRN Reason: Constipation Last Admin: 05/20/18 06:25 Dose: 100 mg Heparin Sodium (Porcine) (Heparin Sodium) 5,000 units SUBCUT Q8H [facility] Last Admin: 05/22/18 06:00 Dose: 5,000 units Ceftriaxone Sodium 1 gm/ (Sodium Chloride) 50 mls @ 50 mls/hr IV Q24H [facility] Last Admin: 05/18/18 13:10 Dose: 50 mls/hr Dextrose/Sodium Chloride (Dextrose 5%-Normal Saline) 1,000 mls @ 100 mls/hr IV ASDIRECTED [facility] Last Infusion: 05/17/18 22:02 Dose: Infused Iopamidol (Isovue-300 (61%)) 75 ml IVPUSH ONETIME ONE Stop: 05/17/18 07:34 Last Admin: 05/17/18 10:10 Dose: 75 ml Levofloxacin (Levaquin) 500 mg PO DAILY [facility] Last Admin: 05/19/18 11:06 Dose: 500 mg Levofloxacin (Levaquin) 250 mg PO DAILY [facility] Last Admin: 05/22/18 08:19 Dose: 250 mg Lisinopril (Prinivil) 20 mg PO DAILY [facility] Last Admin: 05/16/18 09:44 Dose: 20 mg Lorazepam (Ativan) 0 mg IVPUSH ASDIRECTED PRN; Protocol PRN Reason: Agitation Last Admin: 05/18/18 15:53 Dose: 1 mg Meclizine HCl (Antivert) 12.5 mg PO BID PRN PRN Reason: virtigo Last Admin: 05/19/18 14:12 Dose: 12.5 mg Megestrol Acetate (Megace 40 Mg/Ml Susp) 400 mg PO BID [facility] Last Admin: 05/22/18 08:18 Dose: 400 mg Morphine Sulfate (Morphine) 2 mg IVPUSH ONETIME ONE Stop: 05/14/18 11:01 Last Admin: 05/14/18 11:07 Dose: 2 mg Morphine Sulfate (Morphine) 4 mg IVPUSH ONETIME ONE Stop: 05/14/18 12:38 Last Admin: 05/14/18 12:44 Dose: 4 mg Morphine Sulfate (Morphine) 1 mg IVPUSH Q4H PRN PRN Reason: Pain Last Admin: 05/15/18 10:13 Dose: 1 mg Morphine Sulfate (Morphine) 2 mg IVPUSH Q4H PRN PRN Reason: Pain (severe 7-10) Last Admin: 05/18/18 05:26 Dose: 2 mg Nystatin (Mycostatin) 5 ml PO QID [facility] Last Admin: 05/22/18 08:18 Dose: 5 ml Ondansetron HCl (Zofran) 4 mg IV ONETIME ONE Stop: 05/14/18 11:01 Last Admin: 05/14/18 11:03 Dose: 4 mg Ondansetron HCl (Zofran) 4 mg IV Q12H PRN PRN Reason: Nausea/Vomiting Last Admin: 05/15/18 06:19 Dose: 4 mg Ondansetron HCl (Zofran) 4 mg IV Q6H PRN PRN Reason: Nausea/Vomiting Last Admin: 05/19/18 13:20 Dose: 4 mg Ondansetron HCl (Zofran Odt) 4 mg PO Q6H PRN PRN Reason: Nausea/Vomiting Oxycodone/Acetaminophen (Percocet 325-5 Mg) 1 tab PO Q4H PRN PRN Reason: Pain (moderate 4-6) Last Admin: 05/21/18 21:13 Dose: 1 tab Pantoprazole Sodium (Protonix Iv) 40 mg IVPUSH DAILY [facility] Last Admin: 05/21/18 08:44 Dose: 40 mg Pantoprazole Sodium (Protonix) 40 mg PO ACBREAKFAST [facility] Last Admin: 05/22/18 06:01 Dose: 40 mg Senna/Docusate Sodium (Senna Plus) 1 tab PO BID [facility] Last Admin: 05/22/18 08:19 Dose: 1 tab Sodium Chloride (Saline Flush) 10 ml FLUSH ASDIRECTED PRN PRN Reason: Keep Vein Open Last Admin: 05/21/18 08:47 Dose: 10 ml - Exam Quality Assessment: DVT Prophylaxis General: Alert, Oriented HEENT: Pupils Equal, Pupils Reactive, EOMI, Mucous Membr. Moist/[place] Neck: Supple Lungs: Clear to Auscultation, Normal Respiratory Effort Cardiovascular: Regular Rate, Regular Rhythm GI/Abdominal Exam: Normal Bowel Sounds, Soft, Non-Tender, No Organomegaly, No Distention, No Abnormal Bruit, No Mass, Pelvis Stable (Female) Exam: Normal External Exam, Normal Speculum Exam, Normal Bimanual Exam Back Exam: Normal Inspection, Full Range of Motion Extremities: Normal Inspection, Normal Range of Motion, Non-Tender, No Pedal Edema, Normal Capillary Refill Skin: Warm, Dry, Intact Wound/Incisions: Healing Well Neurological: No New Focal Deficit Psy/Mental Status: Alert, Normal Affect, Normal Mood - Problem List & Annotations (1) Pneumonia SNOMED Code(s): 196343053 Code(s): J18.9 - PNEUMONIA, UNSPECIFIED ORGANISM Status: Acute - Problem List Review Problem List Initiated/Reviewed/Updated: Yes - Plan Plan:: This is a 77 y/O F admitted after she had fall at home with CT finding of left sacral alar fracture and B/L pubic rami fracture. She is underweight, has cough with productive sputum and leucocytosis. Also has poor appetite. Impression and Plan: 1. left sacral alar fracture and B/L pubic rami fracture -Pt's images were reviewed by Dr. Olivares (orthopedic) at [facility] and recommended conservative management with pain control and PT/OT. OK to WBAT -continue PT/OT -Ortho plan to see her in a week -continue calcitonin nasal spray as per Ortho recommendation 2. Cough, fever, Leucocytosis CXR shows RLL mass. Possible post obstructive pneumonia sputum cx - multiple claudette, flu screen - negative Continue Levaquin Duo-nebs prn 3. Hypertension BP within acceptable limits Continue Amlodipine at 5 mg daily 4. DVT prophylaxis Continue heparin Code status She wants to remain Full Code
== END 2018-05-22 11:00 | disposition swing bed (61) | DRG 535 ==
LOC: DL.ED 10:47 → DL.MS 13:34 → INTOOBSV 13:34 → UNDOADMOB 13:34 → OBSVTOIN 13:34 → DL.MS 13:38 → OBSVTOIN 13:38
PROVIDERS: ADMIT Hospitalist; ATTEND Student in an Organized Health Care Education/Training Program
DX: S32.502A Unspecified fracture of left pubis, initial encounter for closed fracture (principal); J18.9 Pneumonia, unspecified organism; S32.10XA Unspecified fracture of sacrum, initial encounter for closed fracture; S32.501A Unspecified fracture of right pubis, initial encounter for closed fracture; I10 Essential (primary) hypertension; H54.7 Unspecified visual loss; E78.00 Pure hypercholesterolemia, unspecified; J44.9 Chronic obstructive pulmonary disease, unspecified; E11.9 Type 2 diabetes mellitus without complications; F17.210 Nicotine dependence, cigarettes, uncomplicated; M81.0 Age-related osteoporosis without current pathological fracture; W10.9XXA Fall (on) (from) unspecified stairs and steps, initial encounter; R63.6 Underweight; Y92.008 Other place in unspecified non-institutional (private) residence as the place of occurrence of the external cause; Z68.1 Body mass index [BMI] 19.9 or less, adult; Z88.8 Allergy status to other drugs, medicaments and biological substances; Y93.9 Activity, unspecified; Z79.82 Long term (current) use of aspirin
CPT/HCPCS: 36415; 51702; 70551; 71046; 71260; 72131; 72192; 80048; 85025; 87070; 87077; 87205; 87804; 94010; 94640; 94760; 96372; 96374; 96375; 96376; 97116-GP; 97162-GP; 97166-GO; 97530-GO; 99284-25; A9270-GY; C9113; G0378; J0696; J1644; J2060; J2270; J2405; J7042; J7050; J7620-GY; Q9967

== ENCOUNTER 2018-05-22 10:34 | Inpatient (IN) | payer MEDICARE, OTHER ==
[2018-05-22] MEDS ORDERED: Meclizine 12.5 MG Tab PO PRN (10:58)
[2018-05-22] MEDS ORDERED: Bisacodyl 10 MG Supp RECTAL PRN (10:58)
[2018-05-22] MEDS ORDERED: Albuterol/Ipratropium 3.0-0.5 MG/3 ML Neb Soln NEB PRN (10:58)
[2018-05-22] MEDS ORDERED: Ondansetron 4 MG Tab.DIS PO PRN (10:58)
[2018-05-22] MEDS ORDERED: Docusate Sodium 100 MG Cap PO PRN (10:58)
[2018-05-22] MEDS: Acetaminophen 325 MG Tab PO PRN ×2 (11:20→19:12)
--- NOTE | 2018-05-22 11:35 | PCM.HP ---
H&P History of Present Illness - General Date of Service: 05/22/18 Admit Problem/Dx: Admission Diagnosis/Problem Admission Diagnosis/Problem Hip fracture due to osteoporosis Source of Information: Patient History Limitations: Reports: No Limitations - History of Present Illness Initial Comments - Free Text/Narative: Ms Venkatesh Kenyon is a 77-year-old female with medical history significant for hypertension, hyperlipidemia, chronic history of alcohol use, chronic history of tobacco use, with history of Left Hip Fracture s/p Closed reduction with intramedullary nail fixation, intertrochanteric fracture, left, on May 09, 2014, she presented to ER following a fall. CT of pelvis without contrast on and showed left sacral Alar Fracture and B/L pubic rami fracture. Patient' s images were reviewed by Dr. Olivares (orthopedic) at [facility] and recommended conservative management with pain control and PT/OT. OK to WBAT. She was also noted to have cough at presentation. CXR in the ER showed increasing airspace consolidation in the left Lung concerning for pneumonia. She required supplemental oxygen during admission. She received abx with improvement. Her oxygen requirement has reduced. She is now on 0.5 L. She has been coping with therapy and her pain has improved. She was discharged to swing bed today to continue PT/OT. Improves with: Reports: None Worsens with: Reports: None Associated Symptoms: Reports: No Other Symptoms - Related Data Allergies/Adverse Reactions: Allergies Allergy/AdvReac Type Severity Reaction Status Date / Time hydrochlorothiazide Allergy Dizziness Verified 05/15/14 15:59 Home Medications: Home Meds Aspirin [Estee Chewable Aspirin] 81 mg PO DAILY 05/15/14 [History] Calcium Carbonate/Vitamin D3 [Calcium 500 + Vit D 400] 1 each PO DAILY 05/15/14 [History] Cholecalciferol (Vitamin D3) [Vitamin D3] 1,000 units PO DAILY 05/15/14 [History ] amLODIPine [Norvasc] 5 mg PO DAILY 05/15/14 [History] atorvaSTATin [Lipitor] 20 mg PO DAILY 05/15/14 [History] Lisinopril 20 mg PO DAILY 05/14/18 [History] Past Medical History HEENT History: Reports: Impaired Vision Other HEENT History: wears glasses Cardiovascular History: Reports: High Cholesterol, Hypertension Respiratory History: Reports: COPD Musculoskeletal History: Reports: Fracture, Other (See Below) Other Musculoskeletal History: sacral alar fracture Endocrine/Metabolic History: Reports: Diabetes, Type II Other Endocrine/Metabolic History: MD told her she didn't have to worry about her Type 2 Diabetes till she was maybe 88 - Past Surgical History GI Surgical History: Reports: Appendectomy Social & Family History - Family History Family Medical History: Noncontributory - Caffeine Use Caffeine Use: Reports: Coffee H&P Review of Systems - Review of Systems: Review Of Systems: See Below General: Reports: No Symptoms HEENT: Reports: No Symptoms Pulmonary: Reports: No Symptoms Cardiovascular: Reports: No Symptoms Gastrointestinal: Reports: No Symptoms Genitourinary: Reports: No Symptoms Musculoskeletal: Reports: No Symptoms Skin: Reports: No Symptoms Psychiatric: Reports: No Symptoms Neurological: Reports: No Symptoms Hematologic/Lymphatic: Reports: No Symptoms Immunologic: Reports: No Symptoms Exam - Exam Exam: See Below - Vital Signs Vital Signs: Last Vital Signs Temp 101.3 F H 05/22/18 10:58 Pulse 93 05/22/18 10:58 Resp 18 05/22/18 10:58 BP 111/54 L 05/22/18 10:58 Pulse Ox 94 L 05/22/18 10:58 Weight: 81 lb 9.6 oz - Exam Quality Assessment: Supplemental Oxygen, DVT Prophylaxis General: Alert, Oriented, 4 HEENT: PERRLA, Hearing Intact, Mucosa Moist & [place], Nares Patent, Normal Nasal Septum, Posterior Pharynx Clear, Conjunctiva Clear, EOMI, EACs Clear, TMs Clear Neck: Supple, Trachea Midline, 2 Lungs: Clear to Auscultation, Normal Respiratory Effort Cardiovascular: Regular Rate, Regular Rhythm GI/Abdominal Exam: Normal Bowel Sounds, Soft, Non-Tender, No Organomegaly, No Distention, No Abnormal Bruit, No Mass, Pelvis Stable (Female) Exam: Normal External Exam, Normal Speculum Exam, Normal Bimanual Exam Rectal (Female) Exam: Normal Exam, Normal Rectal Tone Back Exam: Normal Inspection, Full Range of Motion, NT Extremities: Normal Inspection, Normal Range of Motion, Non-Tender, No Pedal Edema, Normal Capillary Refill Skin: Warm, Dry, Intact Neurological: Cranial Nerves Intact, Reflexes Equal Bilateral Neuro Extensive - Mental Status: Alert, Oriented x3, Normal Mood/Affect, Normal Cognition Neuro Extensive - Motor, Sensory, Reflexes: CN II-XII Intact, Normal Gait, Normal Reflexes Psychiatric: Alert, Normal Affect, Normal Mood - Problem List (1) Respiratory failure with hypoxia SNOMED Code(s): 29738949761288389 ICD Code: J96.91 - RESPIRATORY FAILURE, UNSPECIFIED WITH HYPOXIA Status: Acute Current Visit: Yes (2) Fracture of femur SNOMED Code(s): 99182547 ICD Code: S72.90XA - UNSP FRACTURE OF UNSP FEMUR, INIT ENCNTR FOR CLOSED FRACTURE Status: Acute Current Visit: No (3) Hip pain, bilateral SNOMED Code(s): 04715206 ICD Code: M25.551 - PAIN IN RIGHT HIP; M25.552 - PAIN IN LEFT HIP Status: Acute Current Visit: No (4) Pneumonia SNOMED Code(s): 197012060 ICD Code: J18.9 - PNEUMONIA, UNSPECIFIED ORGANISM Status: Acute Current Visit: No (5) Tobacco abuse SNOMED Code(s): 771923306 ICD Code: Z72.0 - TOBACCO USE Status: Acute Current Visit: Yes Problem List Initiated/Reviewed/Updated: Yes Orders Last 24hrs: Active Orders 24 hr Category Date Time Status Patient Status [ADT] Routine ADT 05/22/18 11:01 Active Ambulate [RC] ASDIRECTED Care 05/22/18 10:58 Active Antiembolic Devices [RC] .Routine Care 05/22/18 10:58 Active Antiembolic Devices [RC] PER UNIT ROUTINE Care 05/22/18 10:58 Active Oxygen Therapy [RC] PRN Care 05/22/18 10:58 Active Pulse Oximetry [RC] PRN Care 05/22/18 10:58 Active RT Aerosol Therapy [RC] ASDIRECTED Care 05/22/18 10:58 Active RT Incentive Spirometry [RC] Q2HWA Care 05/22/18 10:58 Active Supplement (Dietary) [Dietary Supplements] [RC] TIDAC Care 05/22/18 10:58 Active Up With Assistance [RC] ASDIRECTED Care 05/22/18 10:58 Active Up to Chair [RC] ASDIRECTED Care 05/22/18 10:58 Active Vital Signs [RC] QSHIFT Care 05/22/18 10:58 Active Consult to Dietary [Consult to Nuclear Equipment Design Engineer] [CONS] Cons 05/22/18 10:58 Active Routine OT Evaluation and Treatment [CONS] Routine Cons 05/22/18 10:58 Active PT Evaluation and Treatment [CONS] Routine Cons 05/22/18 10:58 Active Regular Diet [DIET] Diet 05/22/18 Lunch Active Acetaminophen [Tylenol] Med 05/22/18 10:58 Active 650 mg PO Q4H PRN Acetaminophen/oxyCODONE [Percocet 325-5 MG] Med 05/22/18 10:58 Active 1 tab PO Q4H PRN Albuterol/Ipratropium [DuoNeb 3.0-0.5 MG/3 ML] Med 05/22/18 10:58 Active 3 ml NEB Q4HRRT PRN Aspirin Med 05/23/18 09:00 Active 81 mg PO DAILY Bisacodyl [Dulcolax] Med 05/22/18 10:58 Active 10 mg RECTAL DAILY PRN Calcitonin ([place]) [Miacalcin Nasal [place]] Med 05/23/18 09:00 Active 0 ml GLORIA DAILY Calcium Carbonate/Vitamin D3 [Calcium Carbonate/Vitamin Med 05/23/18 09:00 Active D 1250 MG-200 Unit] 1 tab PO DAILY Cholecalciferol (Vitamin D3) [Vitamin D3] Med 05/23/18 09:00 Active 1,000 units PO DAILY Docusate Sodium [Colace] Med 05/22/18 10:58 Active 100 mg PO DAILY PRN Docusate Sodium/Sennosides [Senna Plus] Med 05/22/18 21:00 Active 1 tab PO BID Heparin Sodium Med 05/22/18 14:30 Active 5,000 units SUBCUT Q8H Meclizine [Antivert] Med 05/22/18 10:58 Active 12.5 mg PO BID PRN Megestrol [Megace 40 MG/ML Susp] Med 05/22/18 21:00 Active 400 mg PO BID Nystatin [Mycostatin] Med 05/22/18 13:00 Active 5 ml PO QID Ondansetron [Zofran ODT] Med 05/22/18 10:58 Active 4 mg PO Q6H PRN Pantoprazole [ProTONIX] Med 05/23/18 06:00 Active 40 mg PO ACBREAKFAST atorvaSTATin [Lipitor] Med 05/23/18 09:00 Active 20 mg PO DAILY levoFLOXacin [Levaquin] Med 05/23/18 09:00 Active 250 mg PO DAILY Antiembolic Hose [OM.PC] Per Unit Routine Oth 05/22/18 10:58 Ordered DVT/VTE Prophylaxis Reflex [OM.PC] Routine Oth 05/22/18 10:58 Ordered Code Status [Resuscitation Status] Routine Resus Stat 05/22/18 11:00 Ordered Medication Orders Acetaminophen (Tylenol) 650 mg PO Q4H PRN PRN Reason: Pain (mild 1-3 )/fever Last Admin: 05/22/18 11:20 Dose: 650 mg Albuterol/Ipratropium (Duoneb 3.0-0.5 Mg/3 Ml) 3 ml NEB Q4HRRT PRN PRN Reason: wheezing Aspirin (Aspirin) 81 mg PO DAILY COUNTS INCLUDE 234 BEDS AT THE [facility] Atorvastatin Calcium (Lipitor) 20 mg PO DAILY COUNTS INCLUDE 234 BEDS AT THE [facility] Bisacodyl (Dulcolax) 10 mg RECTAL DAILY PRN PRN Reason: Constipation Calcitonin [place] (Miacalcin Nasal [place]) 0 ml GLORIA DAILY COUNTS INCLUDE 234 BEDS AT THE [facility] Calcium Carbonate (Calcium Carbonate/Vitamin D 1250 Mg-200 Unit) 1 tab PO DAILY COUNTS INCLUDE 234 BEDS AT THE [facility] Cholecalciferol (Vitamin D3) 1,000 units PO DAILY COUNTS INCLUDE 234 BEDS AT THE [facility] Docusate Sodium (Colace) 100 mg PO DAILY PRN PRN Reason: Constipation Heparin Sodium (Porcine) (Heparin Sodium) 5,000 units SUBCUT Q8H COUNTS INCLUDE 234 BEDS AT THE [facility] Levofloxacin (Levaquin) 250 mg PO DAILY COUNTS INCLUDE 234 BEDS AT THE [facility] Meclizine HCl (Antivert) 12.5 mg PO BID PRN PRN Reason: virtigo Megestrol Acetate (Megace 40 Mg/Ml Susp) 400 mg PO BID COUNTS INCLUDE 234 BEDS AT THE [facility] Nystatin (Mycostatin) 5 ml PO QID COUNTS INCLUDE 234 BEDS AT THE [facility] Ondansetron HCl (Zofran Odt) 4 mg PO Q6H PRN PRN Reason: Nausea/Vomiting Oxycodone/Acetaminophen (Percocet 325-5 Mg) 1 tab PO Q4H PRN PRN Reason: Pain (moderate 4-6) Pantoprazole Sodium (Protonix) 40 mg PO ACBREAKFAST MARGARETH Senna/Docusate Sodium (Senna Plus) 1 tab PO BID COUNTS INCLUDE 234 BEDS AT THE [facility] Assessment/Plan Comment:: Impression and Plan: 1. left sacral alar fracture and B/L pubic rami fracture -Pt's images were reviewed by Dr. Olivares (orthopedic) at [facility] and recommended conservative management with pain control and PT/OT. OK to WBAT -continue PT/OT -Ortho plan to see her in a week -continue calcitonin nasal spray as per Ortho recommendation 2. CXR shows RLL mass. Possible post obstructive pneumonia PO Levaquin x 5 more days Duo-nebs prn 3. Hypertension BP within acceptable limits Continue Amlodipine at 5 mg daily 4. DVT prophylaxis Continue heparin Code status She wants to remain Full Code
[2018-05-22] MEDS: Nystatin Susp 100,000 Unit/ML 5 ML UD Cup PO SCH ×3 (13:29→21:51)
[2018-05-22] MEDS: Heparin Sodium 5,000 Units/ML Vial SUBCUT SCH ×2 (13:29→21:49)
[2018-05-22] MEDS ORDERED: Loperamide 2 MG Cap PO PRN (18:06)
[2018-05-22] MEDS: Acetaminophen/oxyCODONE 325-5 MG Tab PO PRN (21:47)
[2018-05-22] MEDS: Megestrol Susp 40 MG/ML 10 ML UD Cup PO SCH (21:51)
[2018-05-23] MEDS: Pantoprazole 40 MG Tab.CR PO SCH (06:02)
[2018-05-23] MEDS: Heparin Sodium 5,000 Units/ML Vial SUBCUT SCH ×3 (06:03→21:30)
[2018-05-23] MEDS: Cholecalciferol (Vitamin D3) 1,000 Unit Tab PO SCH (09:21)
[2018-05-23] MEDS: Megestrol Susp 40 MG/ML 10 ML UD Cup PO SCH ×2 (09:21→21:28)
[2018-05-23] MEDS: atorvaSTATin 20 MG Tab PO SCH (09:21)
[2018-05-23] MEDS: Aspirin 81 MG Tab.Chew PO SCH (09:22)
[2018-05-23] MEDS: Levofloxacin 250 MG Tab PO SCH (09:23)
[2018-05-23] MEDS: Calcium Carbonate/Vitamin D3 1250 MG-200 Unit Tab PO SCH (09:23)
[2018-05-23] MEDS: Nystatin Susp 100,000 Unit/ML 5 ML UD Cup PO SCH ×4 (09:24→21:28)
[2018-05-23] MEDS: Calcitonin (Salmon) Nasal Spray 3.7 ML Bottle NAS SCH (09:24)
[2018-05-23] MEDS: Acetaminophen/oxyCODONE 325-5 MG Tab PO PRN ×2 (09:31→21:28)
[2018-05-24] MEDS: Acetaminophen/oxyCODONE 325-5 MG Tab PO PRN ×3 (02:44→20:32)
[2018-05-24] MEDS: Pantoprazole 40 MG Tab.CR PO SCH (06:26)
[2018-05-24] MEDS: Heparin Sodium 5,000 Units/ML Vial SUBCUT SCH (06:26)
[2018-05-24] MEDS: Megestrol Susp 40 MG/ML 10 ML UD Cup PO SCH ×2 (09:58→20:26)
[2018-05-24] MEDS: Nystatin Susp 100,000 Unit/ML 5 ML UD Cup PO SCH ×2 (09:58→13:57)
[2018-05-24] MEDS: Cholecalciferol (Vitamin D3) 1,000 Unit Tab PO SCH (09:59)
[2018-05-24] MEDS: Levofloxacin 250 MG Tab PO SCH (09:59)
[2018-05-24] MEDS: Calcium Carbonate/Vitamin D3 1250 MG-200 Unit Tab PO SCH (09:59)
[2018-05-24] MEDS: atorvaSTATin 20 MG Tab PO SCH (09:59)
[2018-05-24] MEDS: Aspirin 81 MG Tab.Chew PO SCH (09:59)
[2018-05-24] MEDS: Calcitonin (Salmon) Nasal Spray 3.7 ML Bottle NAS SCH (10:01)
[2018-05-25] MEDS: Pantoprazole 40 MG Tab.CR PO SCH (05:56)
[2018-05-25] MEDS: Calcium Carbonate/Vitamin D3 1250 MG-200 Unit Tab PO SCH (09:02)
[2018-05-25] MEDS: Cholecalciferol (Vitamin D3) 1,000 Unit Tab PO SCH (09:02)
[2018-05-25] MEDS: Megestrol Susp 40 MG/ML 10 ML UD Cup PO SCH ×2 (09:03→21:07)
[2018-05-25] MEDS: Levofloxacin 250 MG Tab PO SCH (09:03)
[2018-05-25] MEDS: atorvaSTATin 20 MG Tab PO SCH (09:03)
[2018-05-25] MEDS: Enoxaparin 30 MG/0.3 ML Syringe SUBCUT SCH (09:03)
[2018-05-25] MEDS: Aspirin 81 MG Tab.Chew PO SCH (09:03)
[2018-05-25] MEDS: Calcitonin (Salmon) Nasal Spray 3.7 ML Bottle NAS SCH (09:04)
[2018-05-25] MEDS: Acetaminophen/oxyCODONE 325-5 MG Tab PO PRN ×3 (09:09→21:11)
[2018-05-26] MEDS: Pantoprazole 40 MG Tab.CR PO SCH (05:35)
[2018-05-26] MEDS: Acetaminophen 325 MG Tab PO PRN ×2 (05:36→15:52)
[2018-05-26] MEDS: Calcium Carbonate/Vitamin D3 1250 MG-200 Unit Tab PO SCH (10:12)
[2018-05-26] MEDS: Cholecalciferol (Vitamin D3) 1,000 Unit Tab PO SCH (10:12)
[2018-05-26] MEDS: Aspirin 81 MG Tab.Chew PO SCH (10:12)
[2018-05-26] MEDS: atorvaSTATin 20 MG Tab PO SCH (10:13)
[2018-05-26] MEDS: Levofloxacin 250 MG Tab PO SCH (10:13)
[2018-05-26] MEDS: Megestrol Susp 40 MG/ML 10 ML UD Cup PO SCH ×2 (10:13→20:55)
[2018-05-26] MEDS: Enoxaparin 30 MG/0.3 ML Syringe SUBCUT SCH (10:13)
[2018-05-26] MEDS: Calcitonin (Salmon) Nasal Spray 3.7 ML Bottle NAS SCH (10:14)
--- NOTE | 2018-05-26 16:14 | PCM.PN ---
- General Info Date of Service: 05/26/18 Admission Dx/Problem (Free Text): Admission Diagnosis/Problem Admission Diagnosis/Problem Hip fracture due to osteoporosis Subjective Update: Patient reports that she does not like the Ensure clear, and would like to try the shake. She denies any fevers, chills, shortness of breath, chest pain, abdominal pain, Functional Status: Reports: Other (Poor oral intake, poor apetite. ) - Review of Systems General: Reports: No Symptoms HEENT: Reports: No Symptoms Pulmonary: Reports: No Symptoms Cardiovascular: Reports: No Symptoms Gastrointestinal: Reports: No Symptoms Genitourinary: Reports: No Symptoms Musculoskeletal: Reports: No Symptoms Skin: Reports: No Symptoms Neurological: Reports: No Symptoms - Patient Data Vitals - Most Recent: Last Vital Signs Temp 98.9 F 05/26/18 16:07 Pulse 98 05/26/18 16:07 Resp 20 05/26/18 16:07 BP 133/73 05/26/18 16:07 Pulse Ox 95 05/26/18 16:07 Weight - Most Recent: 79 lb 3.2 oz I&O - Last 24 Hours: Intake & Output 05/26/18 05/26/18 05/26/18 06:59 14:59 22:59 Intake Total 115 Balance 115 Med Orders - Current: Current Medications Acetaminophen (Tylenol) 650 mg PO Q4H PRN PRN Reason: Pain (mild 1-3 )/fever Last Admin: 05/26/18 15:52 Dose: 650 mg Albuterol/Ipratropium (Duoneb 3.0-0.5 Mg/3 Ml) 3 ml NEB Q4HRRT PRN PRN Reason: wheezing Aspirin (Aspirin) 81 mg PO DAILY [facility] Last Admin: 05/26/18 10:12 Dose: 81 mg Atorvastatin Calcium (Lipitor) 20 mg PO DAILY [facility] Last Admin: 05/26/18 10:13 Dose: 20 mg Bisacodyl (Dulcolax) 10 mg RECTAL DAILY PRN PRN Reason: Constipation Calcitonin [place] (Miacalcin Nasal [place]) 0 ml GLORIA DAILY [facility] Last Admin: 05/26/18 10:14 Dose: 1 spray Calcium Carbonate (Calcium Carbonate/Vitamin D 1250 Mg-200 Unit) 1 tab PO DAILY [facility] Last Admin: 05/26/18 10:12 Dose: 1 tab Cholecalciferol (Vitamin D3) 1,000 units PO DAILY [facility] Last Admin: 05/26/18 10:12 Dose: 1,000 units Docusate Sodium (Colace) 100 mg PO DAILY PRN PRN Reason: Constipation Enoxaparin Sodium (Lovenox) 30 mg SUBCUT DAILY [facility] Last Admin: 05/26/18 10:13 Dose: 30 mg Levofloxacin (Levaquin) 250 mg PO DAILY [facility] Stop: 05/27/18 09:01 Last Admin: 05/26/18 10:13 Dose: 250 mg Loperamide HCl (Imodium) 2 mg PO BID PRN PRN Reason: Diarrhea Last Admin: 05/22/18 18:43 Dose: 2 mg Meclizine HCl (Antivert) 12.5 mg PO BID PRN PRN Reason: virtigo Megestrol Acetate (Megace 40 Mg/Ml Susp) 400 mg PO BID [facility] Last Admin: 05/26/18 10:13 Dose: 400 mg Ondansetron HCl (Zofran Odt) 4 mg PO Q6H PRN PRN Reason: Nausea/Vomiting Oxycodone/Acetaminophen (Percocet 325-5 Mg) 1 tab PO Q4H PRN PRN Reason: Pain (moderate 4-6) Last Admin: 05/25/18 21:11 Dose: 1 tab Pantoprazole Sodium (Protonix) 40 mg PO ACBREAKFAST [facility] Last Admin: 05/26/18 05:35 Dose: 40 mg Senna/Docusate Sodium (Senna Plus) 1 tab PO BID [facility] Last Admin: 05/26/18 10:13 Dose: 1 tab Discontinued Medications Heparin Sodium (Porcine) (Heparin Sodium) 5,000 units SUBCUT Q8H [facility] Last Admin: 05/24/18 06:26 Dose: 5,000 units Nystatin (Mycostatin) 5 ml PO QID [facility] Last Admin: 05/24/18 13:57 Dose: 5 ml - Exam General: Alert, Oriented, Cooperative HEENT: Pupils Equal, Pupils Reactive Neck: Supple, Trachea Midline Lungs: Clear to Auscultation, Normal Respiratory Effort Cardiovascular: Regular Rate, Regular Rhythm GI/Abdominal Exam: Normal Bowel Sounds, Soft Extremities: Normal Inspection, Normal Range of Motion, No Pedal Edema Peripheral Pulses: 2+: Radial (L), Radial (R) Skin: Other (Sacral pressure ulcers, stage II-III) Neurological: No New Focal Deficit Psy/Mental Status: Alert, Normal Affect, Normal Mood - Problem List & Annotations (1) Sacral decubitus ulcer, stage II SNOMED Code(s): 282078409, 347010824 Code(s): L89.152 - PRESSURE ULCER OF SACRAL REGION, STAGE 2 Status: Acute Current Visit: Yes (2) Anorexia SNOMED Code(s): 49772322 Code(s): R63.0 - ANOREXIA Status: Acute Current Visit: Yes (3) Fracture of femur SNOMED Code(s): 77389068 Code(s): S72.90XA - UNSP FRACTURE OF UNSP FEMUR, INIT ENCNTR FOR CLOSED FRACTURE Status: Acute Current Visit: No (4) Hip pain, bilateral SNOMED Code(s): 00617086 Code(s): M25.551 - PAIN IN RIGHT HIP; M25.552 - PAIN IN LEFT HIP Status: Acute Current Visit: No - Problem List Review Problem List Initiated/Reviewed/Updated: Yes - Plan Plan:: Impression and Plan: 1. left sacral alar fracture and B/L pubic rami fracture -Pt's images were reviewed by Dr. Olivares (orthopedic) at [facility] and recommended conservative management with pain control and PT/OT. OK to WBAT -continue PT/OT -Ortho plan to see her in a week -continue calcitonin nasal spray as per Ortho recommendation 2. CXR shows RLL mass. Possible post obstructive pneumonia PO Levaquin x 5 more days Duo-nebs prn 3. Hypertension BP within acceptable limits Continue Amlodipine at 5 mg daily 4. DVT prophylaxis Continue heparin #Sacral decubitus ulcers: patient is cachetic with very low muscle mass, increasing pressure on all joints. - Attempted to get input from wound care at [facility] but will have to wait till Tuesday to do a wound care consult due to time constraints. - Pressure dressings - Off load pressure points. - Frequent turning during bedtimes. #Severe protein calorie malnutrition: BMI of 14.5 - Ensure with every meal. - Encourage oral intake. Code status She wants to remain Full Code
[2018-05-26] MEDS: Acetaminophen/oxyCODONE 325-5 MG Tab PO PRN (20:55)
[2018-05-27] MEDS: Pantoprazole 40 MG Tab.CR PO SCH (05:56)
[2018-05-27 07:39] VITALS: BP 129/86
[2018-05-27] MEDS: Megestrol Susp 40 MG/ML 10 ML UD Cup PO SCH (08:24)
[2018-05-27] MEDS: Levofloxacin 250 MG Tab PO SCH (08:24)
[2018-05-27] MEDS: atorvaSTATin 20 MG Tab PO SCH (08:25)
[2018-05-27] MEDS: Calcium Carbonate/Vitamin D3 1250 MG-200 Unit Tab PO SCH (08:25)
[2018-05-27] MEDS: Cholecalciferol (Vitamin D3) 1,000 Unit Tab PO SCH (08:25)
[2018-05-27] MEDS: Aspirin 81 MG Tab.Chew PO SCH (08:25)
[2018-05-27] MEDS: Enoxaparin 30 MG/0.3 ML Syringe SUBCUT SCH (08:26)
[2018-05-27] MEDS: Calcitonin (Salmon) Nasal Spray 3.7 ML Bottle NAS SCH (08:27)
--- NOTE | 2018-05-27 10:15 | PCM.DCSUM1 ---
Discharge Summary - Hospital Course Free Text/Narrative:: Ms Venkatesh Kenyon is a 77-year-old female with medical history significant for hypertension, hyperlipidemia, chronic history of alcohol use, chronic history of tobacco use with about 50 pack-years, with history of Left Hip Fracture s/p Closed reduction with intramedullary nail fixation, intertrochanteric fracture, left, on May 09, 2014, she presented to ER following a fall. CT of pelvis without contrast on 05/14/18 and showed left sacral Alar Fracture and B/L pubic rami fracture. Patient's images were reviewed by Dr. Olivares (orthopedic) at [facility] and recommended conservative management with pain control and PT/OT. OK to WBAT. She was also noted to have cough at presentation. CXR in the ER showed increasing airspace consolidation in the left Lung concerning for pneumonia. She required supplemental oxygen during admission. She received abx with improvement. Her oxygen requirement has reduced. However, patient noted to be using accessory muscles of inspiration with associated tachycardia, HR up to 116. She was also noted to have sacral ulceration deemed to be due to combination of pressure and also patient picking on the skin. 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 She has been losing weight despite nutritional supplements, BMI 14.5. Patient wants to be full code so she is being transferred to [facility] for further management. HPI Initial Comments: Ms Venkatesh Kenyon is a 77-year-old female with medical history significant for hypertension, hyperlipidemia, chronic history of alcohol use, chronic history of tobacco use, with history of Left Hip Fracture s/p Closed reduction with intramedullary nail fixation, intertrochanteric fracture, left, on May 09, 2014, she presented to ER following a fall. CT of pelvis without contrast on and showed left sacral Alar Fracture and B/L pubic rami fracture. Patient' s images were reviewed by Dr. Olivares (orthopedic) at [facility] and recommended conservative management with pain control and PT/OT. OK to WBAT. She was also noted to have cough at presentation. CXR in the ER showed increasing airspace consolidation in the left Lung concerning for pneumonia. She required supplemental oxygen during admission. She received abx with improvement. Her oxygen requirement has reduced. She is now on 0.5 L. She has been coping with therapy and her pain has improved. She was discharged to swing bed today to continue PT/OT. Diagnosis: Stroke: No - Discharge Data Discharge Date: 05/27/18 Discharge Disposition: DC/Tfer to Acute Hospital 02 Condition: Stable - Discharge Diagnosis/Problem(s) (1) Sacral decubitus ulcer, stage II SNOMED Code(s): 743264570, 434402254 ICD Code: L89.152 - PRESSURE ULCER OF SACRAL REGION, STAGE 2 Status: Acute Current Visit: Yes (2) Anorexia SNOMED Code(s): 66907289 ICD Code: R63.0 - ANOREXIA Status: Acute Current Visit: Yes (3) Fracture of femur SNOMED Code(s): 69780343 ICD Code: S72.90XA - UNSP FRACTURE OF UNSP FEMUR, INIT ENCNTR FOR CLOSED FRACTURE Status: Acute Current Visit: Yes (4) Hip pain, bilateral SNOMED Code(s): 64839164 ICD Code: M25.551 - PAIN IN RIGHT HIP; M25.552 - PAIN IN LEFT HIP Status: Acute Current Visit: Yes - Patient Summary/Data Consults: Consultations 05/22/18 10:58 Consult to Dietary [Consult to [employer]] [CONS] Routine OT Evaluation and Treatment [CONS] Routine PT Evaluation and Treatment [CONS] Routine - Patient Instructions Diet: Regular Diet as Tolerated Activity: As Tolerated Driving: Do Not Drive Showering/Bathing: May Shower Wound/Incision Care: Keep Operative Site/Wound Site Clean and Dry - Discharge Plan *PRESCRIPTION DRUG MONITORING PROGRAM REVIEWED*: Not Applicable *COPY OF PRESCRIPTION DRUG MONITORING REPORT IN PATIENT HUE: Not Applicable Home Medications: Home Meds Aspirin [Estee Chewable Aspirin] 81 mg PO DAILY 05/15/14 [History] Cholecalciferol (Vitamin D3) [Vitamin D3] 1,000 units PO DAILY 05/15/14 [History ] atorvaSTATin [Lipitor] 20 mg PO DAILY 05/15/14 [History] Calcium Carbonate/Vitamin D3 [Calcium Carbonate/Vitamin D 1250 MG-200 Unit] 1 tab PO DAILY 05/22/18 [History] Acetaminophen [Tylenol] 650 mg PO Q4H PRN tablet 05/27/18 [Rx] Acetaminophen/oxyCODONE [Percocet 325-5 MG] 1 tab PO Q4H PRN tablet 05/27/18 [ Rx] Albuterol/Ipratropium [DuoNeb 3.0-0.5 MG/3 ML] 3 ml NEB Q4HRRT PRN neb [Rx] Bisacodyl [Dulcolax] 10 mg RECTAL DAILY PRN supp 05/27/18 [Rx] Calcitonin ([place]) [Miacalcin Nasal Mittie] 0 ml GLORIA DAILY bottle 05/27/18 [Rx] Meclizine [Antivert] 12.5 mg PO BID PRN tablet 05/27/18 [Rx] Megestrol [Megace 40 MG/ML Susp] 400 mg PO BID cup 05/27/18 [Rx] Pantoprazole [ProTONIX] 40 mg PO ACBREAKFAST tab.cr 05/27/18 [Rx] Oxygen Therapy Mode: BiPAP Oxygen Flow Rate (L/min): 2 FiO2: 35 - Discharge Summary/Plan Comment DC Time >30 min.: Yes - General Info Date of Service: 05/27/18 Admission Dx/Problem (Free Text: Admission Diagnosis/Problem Admission Diagnosis/Problem Hip fracture due to osteoporosis Subjective Update: Patient noted to be tachycardic and tachypneic with use of accessory muscles of respiratory. She reports difficulty breathing. However, she denies any fevers, chills, chest pain, abdominal pain, or any new symptoms. Functional Status: Reports: Pain Controlled - Review of Systems General: Reports: No Symptoms HEENT: Reports: No Symptoms Pulmonary: Reports: Shortness of Breath Cardiovascular: Reports: No Symptoms Gastrointestinal: Reports: No Symptoms Genitourinary: Reports: No Symptoms Musculoskeletal: Reports: No Symptoms Skin: Reports: No Symptoms Neurological: Reports: No Symptoms Psychiatric: Reports: No Symptoms - Patient Data Vitals - Most Recent: Last Vital Signs Temp 97.7 F 05/27/18 07:39 Pulse 121 H 05/27/18 09:49 Resp 28 H 05/27/18 09:49 BP 129/86 05/27/18 07:39 Pulse Ox 91 L 05/27/18 09:49 Weight - Most Recent: 79 lb 4 oz I&O - Last 24 hours: Intake & Output 05/26/18 05/27/18 05/27/18 22:59 06:59 14:59 Intake Total 400 Balance 400 Med Orders - Current: Current Medications Acetaminophen (Tylenol) 650 mg PO Q4H PRN PRN Reason: Pain (mild 1-3 )/fever Last Admin: 05/26/18 15:52 Dose: 650 mg Albuterol/Ipratropium (Duoneb 3.0-0.5 Mg/3 Ml) 3 ml NEB Q4HRRT PRN PRN Reason: wheezing Aspirin (Aspirin) 81 mg PO DAILY [facility] Last Admin: 05/27/18 08:25 Dose: 81 mg Atorvastatin Calcium (Lipitor) 20 mg PO DAILY [facility] Last Admin: 05/27/18 08:25 Dose: 20 mg Bisacodyl (Dulcolax) 10 mg RECTAL DAILY PRN PRN Reason: Constipation Calcitonin [place] (Miacalcin Nasal Mittie) 0 ml GLORIA DAILY [facility] Last Admin: 05/27/18 08:27 Dose: 1 spray Calcium Carbonate (Calcium Carbonate/Vitamin D 1250 Mg-200 Unit) 1 tab PO DAILY [facility] Last Admin: 05/27/18 08:25 Dose: 1 tab Cholecalciferol (Vitamin D3) 1,000 units PO DAILY [facility] Last Admin: 05/27/18 08:25 Dose: 1,000 units Docusate Sodium (Colace) 100 mg PO DAILY PRN PRN Reason: Constipation Enoxaparin Sodium (Lovenox) 30 mg SUBCUT DAILY [facility] Last Admin: 05/27/18 08:26 Dose: 30 mg Loperamide HCl (Imodium) 2 mg PO BID PRN PRN Reason: Diarrhea Last Admin: 05/22/18 18:43 Dose: 2 mg Meclizine HCl (Antivert) 12.5 mg PO BID PRN PRN Reason: virtigo Megestrol Acetate (Megace 40 Mg/Ml Susp) 400 mg PO BID [facility] Last Admin: 05/27/18 08:24 Dose: 400 mg Ondansetron HCl (Zofran Odt) 4 mg PO Q6H PRN PRN Reason: Nausea/Vomiting Oxycodone/Acetaminophen (Percocet 325-5 Mg) 1 tab PO Q4H PRN PRN Reason: Pain (moderate 4-6) Last Admin: 05/26/18 20:55 Dose: 1 tab Pantoprazole Sodium (Protonix) 40 mg PO ACBREAKFAST [facility] Last Admin: 05/27/18 05:56 Dose: 40 mg Senna/Docusate Sodium (Senna Plus) 1 tab PO BID [facility] Last Admin: 05/27/18 08:25 Dose: 1 tab Discontinued Medications Heparin Sodium (Porcine) (Heparin Sodium) 5,000 units SUBCUT Q8H [facility] Last Admin: 05/24/18 06:26 Dose: 5,000 units Levofloxacin (Levaquin) 250 mg PO DAILY [facility] Stop: 05/27/18 09:01 Last Admin: 05/27/18 08:24 Dose: 250 mg Nystatin (Mycostatin) 5 ml PO QID [facility] Last Admin: 05/24/18 13:57 Dose: 5 ml - Exam General: Reports: Alert, Oriented, Cooperative, Moderate Distress HEENT: Reports: Pupils Equal, Pupils Reactive, EOMI, Mucous Membr. Moist/[place] Neck: Reports: Supple, Trachea Midline Lungs: Reports: Other (Increased work of breathing with use of accessory muscles of respiration. ) Cardiovascular: Reports: Regular Rate, Regular Rhythm GI/Abdominal Exam: Normal Bowel Sounds, Soft, Non-Tender, No Distention Extremities: Normal Inspection, Non-Tender, No Pedal Edema Skin: Reports: Warm, Dry, Other (sacral ulcers with increased drainage.) Wound/Incisions: Reports: Drainage Neurological: Reports: No New Focal Deficit Psy/Mental Status: Reports: Alert, Normal Affect, Normal Mood
[2018-05-27] MEDS: Acetaminophen/oxyCODONE 325-5 MG Tab PO PRN (11:00)
== END 2018-05-27 11:05 | DRG 559 ==
LOC: DL.MS 11:01
PROVIDERS: ADMIT Student in an Organized Health Care Education/Training Program; ATTEND Internal Medicine
PROC: F07Z5ZZ Bed Mobility Treatment (ICD-10-PCS; principal; 2018-05-22)
PROC: F07M6ZZ Therapeutic Exercise Treatment of Musculoskeletal System - Whole Body (ICD-10-PCS; 2018-05-22)
PROC: F07Z9ZZ Gait Training/Functional Ambulation Treatment (ICD-10-PCS; 2018-05-22)
DX: S32.502D Unspecified fracture of left pubis, subsequent encounter for fracture with routine healing (principal); J18.9 Pneumonia, unspecified organism; E43 Unspecified severe protein-calorie malnutrition; Z68.1 Body mass index [BMI] 19.9 or less, adult; S32.501D Unspecified fracture of right pubis, subsequent encounter for fracture with routine healing; S32.10XD Unspecified fracture of sacrum, subsequent encounter for fracture with routine healing; I10 Essential (primary) hypertension; L89.152 Pressure ulcer of sacral region, stage 2; E78.5 Hyperlipidemia, unspecified; E78.00 Pure hypercholesterolemia, unspecified; Z79.82 Long term (current) use of aspirin; J44.9 Chronic obstructive pulmonary disease, unspecified; H54.7 Unspecified visual loss; E11.9 Type 2 diabetes mellitus without complications; Z72.0 Tobacco use
CPT/HCPCS: 94660; 97110-GO; 97110-GP; 97116-GP; 97161-GP; 97166-GO; 97530-GO; 97535-GO; A9270-GY; J1644; J1650

== ENCOUNTER 2018-10-27 21:42 | Emergency (ER) | payer OTHER, MEDICARE ==
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
== END 2018-10-28 00:01 | disposition expired ==
LOC: EDBD → MERGE 21:42 → DL.ED 21:42
DX: I46.9 Cardiac arrest, cause unspecified (principal); V49.49XA Driver injured in collision with other motor vehicles in traffic accident, initial encounter; Y92.410 Unspecified street and highway as the place of occurrence of the external cause
CPT/HCPCS: 92950; 99285-25